=== PATIENT | male | born 1990 | race African-American/Black ===

== ENCOUNTER 2016-05-26 22:00 | Emergency (ER) | payer SELFPAY ==
[~2016-05-26] VITALS: Ht 185.4 cm; Wt 111.0 kg
[~2016-05-26 22:00] MED LIST: IBUP800T23 PO
[2016-05-26 22:02] VITALS: BP 142/79; PULSE 78; RESP 16; TEMP 98.4; O2SAT 99
--- NOTE | 2016-05-26 22:48 | PD ---
Physical Exam Time Seen by Provider: 22:47 Narrative 25 year old male with R ear pain for 3 weeks. Throbbing. Denies drainage. Denies cough/congestion/sore throat/fever. VSS seen at triage desk. Awaiting bed placement. Data Data Last Documented VS Vital Signs Date Time Temp Pulse Resp B/P Pulse Ox O2 Delivery O2 Flow Rate FiO2 05/26/16 22:02 98.4 78 16 142/79 99 MDM Medical Record Reviewed: Yes Supervised Visit with KHURRAM: Yes Trevin Power May 26, 2016 22:48
[2016-05-27] MEDS ORDERED: CORT1SOL RIGHT EAR ×2 (00:59→01:24)
[2016-05-27] MEDS ORDERED: AMOX500T PO (00:59)
[2016-05-27] MEDS ORDERED: AMOXICILLIN (TRIHYDRATE) 500 MG CAP PO ONE (01:00)
--- NOTE | 2016-05-27 01:03 | PD ---
HPI Chief Complaint: ENT Complaint Time Seen by Provider: 01:00 Travel History International Travel<30 days: No Contact w/Intl Traveler<30days: No Traveled to known affect area: No History of Present Illness HPI 25-year-old black male presents to emergency Department with complaints of right ear pain 3 weeks. He has had runny nose, cough and congestion. He's been using lhsx-srq-bjbzcca medications without relief. He also has been irrigating his right ear and peroxide. He's had pain in the outer ear as well as decreased hearing. He states that he had some fever and chills initially but that did resolve. Symptoms are moderate. [facility] Past Medical History Medical History: Denies Significant Hx Immunizations Current: Yes Past Surgical History Surgical History: No Previous Surgery Social History Alcohol Use: Yes Tobacco Use: Yes (1PPD) Substance Use: Yes (PT DENIES THIS VISIT) Allergies-Medications (Allergen,Severity, Reaction): Coded Allergies: No Known Allergies (Unverified , 05/27/16) Reported Meds & Prescriptions Reported Meds & Active Scripts Active No Active Prescriptions or Reported Medications Review of Systems Except as stated in HPI: all other systems reviewed are Neg Physical Exam Narrative GENERAL: Well-developed, well-nourished in no acute distress. Nontoxic appearing. HEAD: Normocephalic, atraumatic. EYES: Pupils equal round and reactive. Extraocular motions intact. No scleral icterus. No injection or drainage. ENT: The right TM is distended with erythema. The left TMs clear without erythema. The external auditory canals have cerumen bilaterally. The right external auditory canals erythematous and has some small amount of exudate. Tender to palpation of the pinna and tragus.. Nose: clear . Posterior pharynx is pink and moist. No tonsillar edema or exudate. Uvula midline. Airway patent. NECK: Trachea midline.Supple, nontender, moves head freely. No central bony tenderness or spasm. CARDIOVASCULAR: Regular rate and rhythm without murmurs, gallops, or rubs. RESPIRATORY: Clear to auscultation. Breath sounds equal bilaterally. No wheezes , rales, or rhonchi. GASTROINTESTINAL: Abdomen soft, non-tender, nondistended. No hepato-splenomegaly , or palpable masses. No guarding. EXTREMITIES: No clubbing, cyanosis, or edema. No joint tenderness, effusion, or edema noted. BACK: Nontender without deformity or crepitance. No flank tenderness. Data Data Last Documented VS Vital Signs Date Time Temp Pulse Resp B/P Pulse Ox O2 Delivery O2 Flow Rate FiO2 05/26/16 22:02 98.4 78 16 142/79 99 Orders Amoxicillin (Trimox) (05/27/16 01:00) MDM Medical Decision Making Medical Screen Exam Complete: Yes Emergency Medical Condition: Yes Medical Record Reviewed: Yes Differential Diagnosis Differential diagnoses: Otitis media, otitis externa, mastoiditis Narrative Course Patient given amoxicillin 1 g by mouth. This is right otitis media, right otitis externa Diagnosis Primary Impression: Right otitis media Qualified Code: H66.91 - Right otitis media, unspecified chronicity, unspecified otitis media type Additional Impression: Right otitis externa Qualified Code: H60.501 - Acute otitis externa of right ear, unspecified type Patient Instructions: General Instructions Additional Instructions: Rest. Increase fluids. Amoxicillin and Cortisporin. Ny-D. Follow-up with a medical doctor in one week. Med/Other Pt SpecificInfo: Prescription(s) given Scripts Vliuxaef-Eiviibroe-SI Otic Drops (Cortisporin HC Otic Drops)3.5-10,000-1 Mg- Units-% Soln4 Drop RIGHT EAR QID #1 BOTTLE Prov:John Andrade MD 05/27/16 Amoxicillin 500 Mg Tab1,000 Mg PO BID #40 TAB Prov:John Andrade MD 05/27/16 Disposition: 01 DISCHARGE HOME Condition: Stable Josh Richmond May 27, 2016 01:03
== END 2016-05-27 01:25 | disposition home or self-care (01) ==
LOC: NEPK 22:00
DX: H66.91 Otitis media, unspecified, right ear (principal); H60.501 Unspecified acute noninfective otitis externa, right ear; F17.200 Nicotine dependence, unspecified, uncomplicated
CPT/HCPCS: 99282

== ENCOUNTER 2016-06-23 05:49 | Emergency (ER) | payer SELFPAY ==
[~2016-06-23] VITALS: Ht 188 cm; Wt 110.0 kg
[~2016-06-23 05:49] MED LIST changes: +AMOX500T PO; +CORT1SOL RIGHT EAR; -IBUP800T23 PO
[2016-06-23 05:51] VITALS: BP 176/92; PULSE 80; RESP 16; TEMP 98.6; O2SAT 100
[2016-06-23] MEDS ORDERED: AUGM875T PO (06:13)
[2016-06-23] MEDS ORDERED: NAPR500 PO (06:13)
[2016-06-23] MEDS ORDERED: CORT1SOL RIGHT EAR (06:13)
--- NOTE | 2016-06-23 06:13 | PD ---
HPI Chief Complaint: ENT Complaint Time Seen by Provider: 06:02 Travel History International Travel<30 days: No Contact w/Intl Traveler<30days: No Traveled to known affect area: No History of Present Illness HPI 25 year-old man presents emergent department complaining of right sided ear pain ongoing for the past week or so. He seen in the emergency department or was found to have inflamed right TM with sinusitis otitis media. He completed antibiotics but didn't seem to really help. He also has pain in his gums on the upper right side. He has a history of some sinus problems. He otherwise has been feeling generally well and healthy History Past Medical History Medical History: Denies Significant Hx Tetanus Vaccination: Unknown Influenza Vaccination: No Past Surgical History Surgical History: No Previous Surgery Social History Alcohol Use: Yes Tobacco Use: Yes (1PPD) Allergies-Medications (Allergen,Severity, Reaction): Coded Allergies: No Known Allergies (Unverified , 06/23/16) Reported Meds & Prescriptions Reported Meds & Active Scripts Active Naprosyn (Naproxen) 500 Mg Tab 500 Mg PO BID PRN Augmentin (Amoxicillin-Clavulanate) 875-125 mg Tab 875 Mg PO BID 7 Days not for use in CrCl <30 ml/min. Cortisporin HC Otic Drops (Hielwipn-Bryvwwgln-KR Otic Drops) 3.5-10,000-1 Mg- Units-% Soln 4 Drop RIGHT EAR QID Review of Systems Except as stated in HPI: all other systems reviewed are Neg Physical Exam Narrative GENERAL: Well-appearing 25-year-old man, no acute distress. SKIN: Focused skin assessment warm/dry. HEAD: Atraumatic. Normocephalic. EYES: Pupils equal and round. No scleral icterus. No injection or drainage. ENT: No nasal bleeding or discharge. Mucous membranes pink and moist. His left TM is really cleared by cerumen. The right ear canal has debris in the lumen, but the eardrum itself looks okay. There is minimal tenderness with traction to the pinna. He does have some cervical adenopathy on the right side. NECK: Trachea midline. No JVD. CARDIOVASCULAR: Regular rate and rhythm. No murmur appreciated. RESPIRATORY: No accessory muscle use. Clear to auscultation. Breath sounds equal bilaterally. GASTROINTESTINAL: Abdomen soft, non-tender, nondistended. Hepatic and splenic margins not palpable. MUSCULOSKELETAL: No obvious deformities. No edema. Data Data Last Documented VS Vital Signs Date Time Temp Pulse Resp B/P Pulse Ox O2 Delivery O2 Flow Rate FiO2 06/23/16 05:51 98.6 80 16 176/[address] [facility] Medical Decision Making Medical Screen Exam Complete: Yes Emergency Medical Condition: Yes Differential Diagnosis Ear pain, dental problems, sinus infection, other Narrative Course Medical decision making 25-year-old male presents emergency Department with right ear pain. He also some tenderness in his gums, and some tender anterior cervical adenopathy. He looks well. I think this is probably mostly from his teeth. His right ear has some debris in the ear canal, but the TM itself is normal. I don't think he has no otitis externa. I did re-prescribe his Cortisporin which he hadn't gotten filled yet. We'll put him on a stronger antibiotic for odontogenic infection, and recommend that he see a dentist. Diagnosis Primary Impression: Ear pain, right Additional Instructions: Take Augmentin as prescribed. Take Naprosyn as needed for pain. Follow-up with a dentist for further evaluation of your teeth on the upper right side. Return to the emergency department for any new or worsening symptoms. Med/Other Pt SpecificInfo: Prescription(s) given Scripts Naproxen (Naprosyn)500 Mg [id number] Mg PO BID PRN (PAIN SCALE 1 TO 10) #20 TAB Prov:Dallas Norris MD 06/23/16 Amoxicillin-Clavulanate (Augmentin)875-125 mg [id number] Mg PO BID 7 Days not for use in CrCl <30 ml/min. Prov:Dallas Norris MD 06/23/16 Rhsqmpnc-Avwzllfdi-OM Otic Drops (Cortisporin HC Otic Drops)3.5-10,000-1 Mg- Units-% Soln4 Drop RIGHT EAR QID #1 BOTTLE Prov:Dallas Norris MD 06/23/16 Disposition: 01 DISCHARGE HOME Condition: Stable Dallas Norris MD June 23, 2016 06:13
== END 2016-06-23 06:25 | disposition home or self-care (01) ==
LOC: NEPE 05:49
DX: H92.01 Otalgia, right ear (principal); F17.210 Nicotine dependence, cigarettes, uncomplicated
CPT/HCPCS: 99282

== ENCOUNTER 2016-11-03 19:33 | Emergency (ER) | payer SELFPAY ==
[~2016-11-03] VITALS: Ht 185.4 cm; Wt 113.5 kg
[~2016-11-03 19:33] MED LIST changes: -AMOX500T PO; +AUGM875T PO; +NAPR500 PO
[2016-11-03 19:34] VITALS: BP 133/79; PULSE 93; RESP 16; TEMP 98.7; O2SAT 99
--- NOTE | 2016-11-03 20:04 | PD ---
HPI Chief Complaint: Injury Time Seen by Provider: 20:00 Travel History International Travel<30 days: No Contact w/Intl Traveler<30days: No Traveled to known affect area: No History of Present Illness HPI 25-year-old black male presents to emergency department for evaluation of right ankle pain after an injury 2 days ago. He states that he had dropped a viral on his right foot and ankle at work the day before. He states that he had some mild pain initially and was able to do his activities. He states that when he awoke today he has had significant discomfort has had decreased ability to ambulate. He denies any numbness or tingling. No other injury. Pain is moderate Worse with walking. Some relief with elevation. History Past Medical Histgory Medical History: Denies Significant Hx Tetanus Vaccination: < 5 Years Past Surgical History Surgical History: No Previous Surgery Social History Alcohol Use: Yes Tobacco Use: Yes (1PPD) Allergies-Medications (Allergen,Severity, Reaction): Coded Allergies: No Known Allergies (Unverified , 11/03/16) Reported Meds & Prescriptions Reported Meds & Active Scripts Active Naprosyn (Naproxen) 500 Mg Tab 500 Mg PO BID PRN Augmentin (Amoxicillin-Clavulanate) 875-125 mg Tab 875 Mg PO BID 7 Days not for use in CrCl <30 ml/min. Cortisporin HC Otic Drops (Lztyyjic-Ybjvonfeg-AY Otic Drops) 3.5-10,000-1 Mg- Units-% Soln 4 Drop RIGHT EAR QID Review of Systems Except as stated in HPI: all other systems reviewed are Neg Physical Exam Narrative GENERAL: This is a well-nourished, well-developed patient, in no apparent distress. SKIN: No rashes, ecchymoses or lesions. Warm and dry. HEAD: Atraumatic. Normocephalic. EYES: PERRL, EOMI, no discharge or injection. No scleral icterus. EARS: Clear NOSE: Nasal turbinates appear normal. THROAT: Mucosa pink and moist. Airway patent. NECK: Trachea midline. supple, moves head freely. LUNGS: Clear to auscultation. CV: Regular in rhythm. ABDOMEN: Soft nontender. EXT: No clubbing cyanosis or edema. Examination of the right lower extremity reveals pain to the anterior talar fibular ligament region. There is no pain in the medial or lateral malleolus. No pain in the heel or Achilles. No pain in the forefoot or toes. Patient is ambulating with a mildly antalgic gait. Data Data Last Documented VS Vital Signs Date Time Temp Pulse Resp B/P (MAP) Pulse Ox O2 Delivery O2 Flow Rate FiO2 11/03/16 19:34 98.7 93 16 133/79 (97) 99 Room Air MDM Medical Screen Exam Complete: Yes Emergency Medical Condition: No Differential Diagnosis MDM: High Differential diagnoses: Fracture, sprain, strain, dislocation, contusion, neurovascular injury Narrative Course A medical screening exam was performed: At the time of evaluation the presenting medical condition was determined not to be of an emergent nature. The patient was given the option of receiving additional care, but declined. Patient was given options for additional community resources from which to obtain care. The Patient Has Been advised to seek medical attention for their presenting complaint. The patient has been advised to return to the ER at any time if an emergent condition develops. Primary Impression: Encounter for medical screening examination Condition: Josh Sol Nov 03, 2016 20:04
== END 2016-11-03 20:13 | disposition left against medical advice (07) ==
LOC: NEPK 19:33
DX: M25.571 Pain in right ankle and joints of right foot (principal); F17.200 Nicotine dependence, unspecified, uncomplicated
CPT/HCPCS: 99281

== ENCOUNTER 2017-09-15 18:40 | Inpatient (IN) ==
[2017-09-15] MEDS ORDERED: Piperacil/Tazo 4.5 GM Premix 4.5 GM/100 ML BAG IV.SIG STA (20:40)
[2017-09-15] MEDS ORDERED: Vancomycin Inj 1,000 MG in Sodium Chlor 0.9% Inj 250 ML IV.SIG STA (20:40)
[2017-09-15] MEDS ORDERED: Morphine Sulfate Inj 8 MG/ML Vial IV.PUSH ONE (20:40)
--- NOTE | 2017-09-15 21:06 | ED ---
HPI General Chief complaint: Skin/Abscess/Foreign Body Stated complaint: Abcess to buttocks Time Seen by Provider: 09/15/17 20:34 Source: patient and family Mode of arrival: ambulatory Limitations: no limitations History of Present Illness HPI narrative: Patient is a 26-year-old male presenting to the emergency department for evaluation of an abscess to his left buttock. Patient states it started 7 days ago. He states that he was here 2 days ago and was prescribed antibiotics. He reports compliance with this medication. He states the pain has gotten worse despite antibiotic. Pain is a 10 out of 10, aching and throbbing. Patient states he cannot sit. He reports fevers which have been ongoing for the last 2 days. Patient last took Tylenol at noon today. Symptom onset was gradual, symptoms are significant to severe nature. No alleviating factors. Patient reports a history of the same. Patient has been taking Bactrim. MD complaint: abscess/boil Onset (ago): week(s) (1) Location: buttocks Severity: severe Severity scale (1-10): 10 Quality: aching and constant Pain Consistency: constant Relieving factors: none Exacerbating factors: movement Context: none Associated symptoms: fever, chills and malaise Treatments prior to arrival: antibiotic Related Data Previous Rx's Medication Instructions Recorded sulfamethoxazole-trimethoprim 1 tab PO Q12H 7 Days #14 tab 09/13/17 [Bactrim DS] Allergies Allergy/AdvReac Type Severity Reaction Status Date / Time No Known Allergies Allergy Verified 09/15/17 19:17 Review of Systems Except as stated in HPI: all other systems reviewed are negative [facility] Medical History Medical History Patient denies medical problems (Acute) Surgical History Surgical History No history of previous surgery (Acute) Social History Social History Substance History: Active Abuse Second Hand Smoke Exposure: No Smoking Status: Current every day smoker Tobacco Type: Cigarettes How Often Do You Have a Drink Containing Alcohol: 2 to 3 times a week Recent Travel in [facility] within the Last 8 Weeks: No Recent Out of Country Travel within the Last 8 Weeks: No Substance Abuse Detail Marijuana: Substance Use Status: Active Route Used Substance Abuse: Inhalation Substance Frequency: DAILY OUNCE OR MORE A DAY Reason for Use: Feels Good Immunization History Tetanus Immunization: >5 Years Hx Influenza Vaccine This Season: No Exam Narrative Exam Narrative: GENERAL: Well-developed, well-nourished, alert -[place] male. Appears uncomfortable, no acute distress. SKIN: Focused skin assessment warm/dry. 7 x 12 cm area of firmness to the left buttock adjacent to the gluteal cleft, there is a second area of firmness to the right buttock approximately 3 x 4 cm. No fluctuance noted. Extremely tender to palpation. HEAD: Atraumatic. Normocephalic. EYES: Pupils equal and round. No scleral icterus. No injection or drainage. ENT: No nasal bleeding or discharge. Mucous membranes pink and moist. NECK: Trachea midline. No JVD. CARDIOVASCULAR: Tachycardic. No murmur appreciated. RESPIRATORY: No accessory muscle use. Clear to auscultation. Breath sounds equal bilaterally. GASTROINTESTINAL: Abdomen soft, non-tender, nondistended. Hepatic and splenic margins not palpable. MUSCULOSKELETAL: No obvious deformities. No clubbing. No cyanosis. No edema. NEUROLOGICAL: Awake and alert. No obvious cranial nerve deficits. Motor grossly within normal limits. Normal speech. PSYCHIATRIC: Appropriate mood and affect; insight and judgment normal. Procedures Abscess I/D Site: jeremiah-rectal Side (if applicable): left Anesthetic used: with epi Technique: incised with #11 blade Amount of fluid expressed (mL): 150 Irrigation: Yes Packing used?: iodoform Course Initial Documented Vital Signs Temperature 100.5 F H 09/15/17 19:17 Pulse Rate 108 H 09/15/17 19:17 Respiratory Rate 18 09/15/17 19:17 Blood Pressure 127/86 09/15/17 19:17 Pulse Oximetry 99 09/15/17 19:17 Last Documented Vital Signs Temperature 100.5 F H 09/15/17 19:17 Pulse Rate 89 09/15/17 21:00 Respiratory Rate 16 09/15/17 20:59 Blood Pressure 128/58 L 09/15/17 20:59 Pulse Oximetry 98 09/15/17 20:59 Medical Decision Making KHURRAM Attestation KHURRAM supervised visit: Yes Attestation: I, Dr. Booth, have reviewed the advance practice practitioner's documentation and am in agreement, met with the patient face to face, made the diagnosis, and the medical decision making was done by me. *My assessment and Findings: Patient 26-year-old male presents emergency department for evaluation of gluteal abscess, spread significantly since his last hospital visit, he was seen here a few days ago placed on Bactrim, his abscesses grown significantly and now he is having generalized symptoms, his vital signs have shown increased heart rate and fever today and he does have a white count with neutrophilia. This is consistent with Sirs and therefore sepsis. He was started on broad-spectrum antibiotics, Ms. Tristan added Flagyl for possibility of E. coli infection as well however more likely this is staff or possibly even Pseudomonas. Will be admitted to the hospital. MDM Narrative Medical decision making narrative: Patient is a 26-year-old male presenting to the emergency department for reevaluation of an abscess to his left buttock which has worsened since his last presentation to the emergency department. Patient is mildly tachycardic and febrile on arrival. Labs and imaging ordered and pending. Please see procedure report for I&D. Patient's white count is elevated at 14.[address] scan shows abscess and cellulitis in the left gluteal region. Wound culture obtained and is pending. Patient reports improvement in his pain. Patient will be admitted for IV antibiotic therapy as he has failed outpatient therapy. Patient is agreeable to plan. Differential Diagnosis Differential Diagnosis: Abscess versus cellulitis versus perirectal abscess versus pilonidal abscess versus other Medical Records Medical records reviewed: Yes I reviewed the patient's medical records. Lab Data Lab results reviewed: Yes I reviewed the patient's lab results. Result diagrams: 09/15/17 21:00 09/15/17 21:00 Lab Results 09/15/17 09/15/17 09/15/17 Range/Units 21:00 21:00 21:00 WBC 14.2 H (4.0-11.0) th/mm3 RBC 4.79 (4.50-5.90) mil/mm3 Hgb 13.6 (13.0-17.0) gm/dL Hct 41.3 (39.0-51.0) % MCV 86.3 (80.0-100.0) fL MCH 28.3 (27.0-34.0) pg MCHC 32.8 (32.0-36.0) % RDW 13.5 (11.6-17.2) % Plt Count 353 (150-450) th/mm3 MPV 7.1 (7.0-11.0) fL Neut % (Auto) 81.9 H (16.0-70.0) % Lymph % (Auto) 10.6 (9.0-44.0) % [place] % (Auto) 6.9 (0.0-8.0) % Eos % (Auto) 0.2 (0.0-4.0) % Baso % (Auto) 0.4 (0.0-2.0) % Neut # (Auto) 11.6 H (1.8-7.7) th/mm3 Lymph # (Auto) 1.5 (1.0-4.8) th/mm3 [place] # (Auto) 1.0 H (0.0-0.9) th/mm3 Eos # (Auto) 0.0 (0.0-0.4) th/mm3 Baso # (Auto) 0.1 (0.0-0.2) th/mm3 WBC Differential . Differential Comment Auto diff final Sodium 134 L (136-145) meq/L Potassium 3.8 (3.5-5.1) meq/L Chloride 101 (98-107) meq/L Carbon Dioxide 26.1 (21.0-32.0) meq/L Anion Gap 7 (5-15) meq/L BUN 10 (7-18) mg/dL Creatinine 1.09 (0.60-1.30) mg/dL Estimated GFR Greater than 89 (>89) mL/min Random Glucose 103 (74-106) mg/dL Lactic Acid 1.6 (0.4-2.0) mmol/L Calcium 8.8 (8.5-10.1) mg/dL Total Bilirubin 0.6 (0.2-1.0) mg/dL AST 15 (15-37) U/L ALT 25 (12-78) U/L Alkaline Phosphatase 90 (45-117) U/L Total Protein 8.3 H (6.4-8.2) g/dL Albumin 3.4 (3.4-5.0) g/dL Imaging Data Radiologist's impression: Abdomen/Pelvis CT 09/15/17 20:40 CONCLUSION: 1. Abscess in the gluteal region between the gluteus ivon musculature posterior to the coccyx measuring up to 7.6 x 4 cm. No extension into the ischiorectal fossae identified. Cellulitis extends to the anal verge. 2. No acute findings within the abdomen and pelvis. Discharge Plan Discharge Disposition Patient Disposition: 30 Still Patient Discharge Condition Condition: Good Discharge Details Diagnosis: Abscess and cellulitis of gluteal region, Sepsis Physicians Team ED Provider: Barry Booth ED Midlevel Provider: Brandi Padgett Primary Care Provider: Primary Care Zayra Andrea Rxs /Orders / Referrals /Forms Prescriptions: No Action sulfamethoxazole-trimethoprim [Bactrim DS] 800-160 mg tablet 1 tab PO Q12H 7 Days Qty: 14 RF: 0 Status ED Status: Admitted Patient
[2017-09-15 21:13] LABS: Baso # (Auto) 0.1 th/mm3 (0.0-0.2); Baso % (Auto) 0.4 % (0.0-2.0); Eos % (Auto) 0.2 % (0.0-4.0); Hematocrit 41.3 % (39.0-51.0); Hemoglobin 13.6 gm/dL (13.0-17.0); Lymph # (Auto) 1.5 th/mm3 (1.0-4.8); Lymph % (Auto) 10.6 % (9.0-44.0); Mean Corpuscular HGB Conc 32.8 % (32.0-36.0); Mean Corpuscular Hemoglobin 28.3 pg (27.0-34.0); Mean Corpuscular Volume 86.3 fL (80.0-100.0); Mean Platelet Volume 7.1 fL (7.0-11.0); Mono % (Auto) 6.9 % (0.0-8.0); Neut # (Auto) 11.6 th/mm3 (1.8-7.7); Neut % (Auto) 81.9 % (16.0-70.0); Platelet Count 353 th/mm3 (150-450); Red Blood Count 4.79 mil/mm3 (4.50-5.90); Red Cell Distribution Width 13.5 % (11.6-17.2); White Blood Count 14.2 th/mm3 (4.0-11.0)
[2017-09-15 21:33] LABS: Albumin 3.4 g/dL (3.4-5.0); Anion Gap 7 meq/L (5-15); Aspartate Aminotransferase 15 U/L (15-37); Blood Urea Nitrogen 10 mg/dL (7-18); Calcium 8.8 mg/dL (8.5-10.1); Carbon Dioxide 26.1 meq/L (21.0-32.0); Chloride 101 meq/L (98-107); Glomerular Filtration Rate Greater Than 89 mL/min (>89); Glucose,Random 103 mg/dL (74-106); Potassium 3.8 meq/L (3.5-5.1); Sodium 134 meq/L (136-145)
[2017-09-15 21:37] LABS: Alanine Aminotransferase 25 U/L (12-78); Alkaline Phosphatase 90 U/L (45-117); Total Protein 8.3 g/dL (6.4-8.2)
--- NOTE | 2017-09-15 21:38 | CT ---
EXAM DATE: 09/15/2017 9:13 PM EDT AGE/SEX: 26 years / Male INDICATIONS: Abscess on buttock. CLINICAL DATA: This is the patient's initial encounter. Patient reports that signs and symptoms have been present for 1 day and indicates a pain score of 5/10. MEDICAL/SURGICAL HISTORY: None. None. ORAL CONTRAST: No oral contrast ingested. RADIATION DOSE: 20.52 CTDI (mGy) COMPARISON: No prior exams available for comparison. TECHNIQUE: Multiple contiguous axial images were obtained through the abdomen and pelvis following b olus infusion of 97 ml Omnipaque 350 (iohexol) nonionic water-soluble contrast as a single exam dos e. No oral contrast ingested. Using automated exposure control and adjustment of the mA and/or kV ac cording to patient size, radiation dose was kept as low as reasonably achievable to obtain optimal di agnostic quality images. DICOM format image data is available electronically for review and comparis on. FINDINGS: Lung bases are clear. No acute findings in the liver, spleen, adrenals, kidneys or pancreas. No calci fied gallstones or biliary ductal dilatation. In the posterior pelvic region predominantly along the medial left gluteal region posterior to the co ccyx there is a 7.6 x 4 cm abscess which extends slightly across midline into the medial right glutea l region. There is some surrounding cellulitis. There is no free fluid. No bowel obstruction. No adenopathy. CONCLUSION: 1. Abscess in the gluteal region between the gluteus ivon musculature posterior to the coccyx dillan suring up to 7.6 x 4 cm. No extension into the ischiorectal fossae identified. Cellulitis extends to the anal verge. 2. No acute findings within the abdomen and pelvis. Electronically signed by: Josh Camarena MD 09/15/2017 9:37 PM EDT
[2017-09-15] MEDS ORDERED: Lidocaine 1%/Epinephrine 1:100,000 Inj 20 ML Vial INFILTRATN ONE (21:43)
[2017-09-15] MEDS ORDERED: Vancomycin Consult Pharmacy 1 EACH OTHER SCH (22:33)
[2017-09-15] MEDS ORDERED: Temazepam 15 MG Capsule PO PRN (22:34)
[2017-09-15] MEDS ORDERED: Bisacodyl 10 MG Supp RECTAL PRN (22:34)
[2017-09-15] MEDS ORDERED: Naloxone Inj 0.4 MG/ML Vial IV.PUSH PRN (22:36)
--- NOTE | 2017-09-15 23:49 | P.HPIM ---
History of Present Illness Primary Care Physician: No Primary Care Physician History of Present Illness: 36-year-old male who presents with one-week history of aggressively worsening constant sharp nonradiating over the right buttock. Patient visited the ER on , was prescribed a course of Bactrim which she has been taking. Unfortunately, the pain has continued to worsen and swelling has worsened as well. Patient denies any chest pain, shortness of breath, nausea, vomiting, fevers, chills. Patient had incision and drainage performed in the ER, now reports pain has much improved. Inpatient Certification: I certify that the inpatient services were ordered in accordance with Medicare regulations governing the order. This includes certification that hospital inpatient services are reasonable and necessary and in the case of services not specified as inpatient-only under 42 CFR 419.22(n), that they are appropriately provided as inpatient services in accordance to with the 2-midnight benchmark under 43 CFR 412.3(e) Estimated Total Length of Stay (Days): 3 Plans for Post Hospital Care: Home Review of Systems All other systems reviewed negative except as stated in [facility] - History History Provided By: Patient - Medical History Medical History: Medical History (Last Reviewed 09/15/17 @ 21:04 by FRANCINE Arambula) Patient denies medical problems - Surgical History Surgical History: Surgical History (Last Reviewed 09/15/17 @ 21:04 by FRANCINE Arambula) No history of previous surgery - Family History Family History: Family History (Last Updated 09/15/17 @ 23:47 by Michoacano Byrd MD) Mother Hypertension Father Diabetes - Tobacco History Second Hand Smoke Exposure: No Tobacco Use In Past 30 Days: Yes Smoking Status: Current every day smoker Tobacco Type: Cigarettes - Alcohol History How Often Do You Have a Drink Containing Alcohol: 2 to 3 times a week - Substance Use History Substance History: Active Abuse - Substance Use Type Marijuana Status: Active Route Used: Inhalation Frequency: DAILY OUNCE OR MORE A DAY Reason for Use: Feels Good - Travel History Recent Travel in the [place] Within the Last 8 Weeks: No Recent Travel Out of the Country Within the Last 8 Weeks: No - Immunization History Tetanus Immunization: >5 Years Hx Influenza Vaccine This Season: No Medications and Allergies Active Medications: Active Medications Hydrocodone Bitart/Acetaminophen (Orwell 10/325) 1 tab PO Q4H PRN PRN Reason: PAIN SCALE 6 TO 10 Hydrocodone Bitart/Acetaminophen (Orwell 5/325) 1 tab PO Q4H PRN PRN Reason: PAIN SCALE 3 TO 5 Al Hydroxide/Mg Hydroxide (Milk Of Magnesia Liq) 30 ml PO Q12H PRN PRN Reason: Mild Constipation Bisacodyl (Dulcolax Supp) 10 mg RECTAL DAILY PRN PRN Reason: SEVERE CONSITIPATION Piperacillin/Tazobactam/Dextrose (Zosyn 4.5 Gm Premix) 4.5 gm in 100 mls @ 200 mls/hr IV.SIG Q6H [facility] Pharmacy Profile Note (Vancomycin Consult Pharmacy) 0 mls @ 0 mls/hr OTHER UNSCH CLAUDY Sodium Chloride (Ns Inj) 1,000 mls @ 100 mls/hr IV.CONT .Q10H [facility] Vancomycin HCl 1,750 mg/ (Sodium Chloride) 517.5 mls @ 258.75 mls/hr IV.SIG ONCE ONE Stop: 09/16/17 03:59 Lactulose (Lactulose Liq) 30 ml PO DAILY PRN PRN Reason: SEVERE CONSITIPATION Naloxone HCl (Narcan Inj) 0.4 mg IV.PUSH UNSCH PRN PRN Reason: SEE LABEL COMMENTS Sennosides (Senokot) 17.2 mg PO Q12H PRN PRN Reason: Moderate Constipation Temazepam (Restoril) 15 mg PO HS PRN PRN Reason: INSOMNIA Allergies Allergy/AdvReac Type Severity Reaction Status Date / Time No Known Allergies Allergy Verified 09/15/17 19:17 Exam Vital signs: Vital Signs 09/15/17 19:17 09/15/17 20:59 09/15/17 21:00 Temperature 100.5 F H Pulse Rate 108 H 93 H 89 Respiratory Rate 18 16 Blood Pressure 127/86 128/58 L Pulse Oximetry 99 98 09/15/17 21:20 09/15/17 23:16 Temperature 99.5 F Pulse Rate 82 Respiratory Rate 15 Blood Pressure 122/58 L Pulse Oximetry 100 96 Intake & Output 09/15/17 09/15/17 09/16/17 06:59 18:59 06:59 Intake Total 450 / 450 Balance 450 / 450 Weight 108.862 kg Intake: IV 450 / 450 Ofirmev Inj 1,000 mg In 100 ml 100 / 100 @ 400 mls/hr IV.SIG ONCE ONE Rx #:[id number] Zosyn 4.5 GM Premix 4.5 gm In 100 / 100 100 ml @ 200 mls/hr IV.SIG STAT STA Rx#:[id number] Vancomycin Inj 1,000 MG In NS 250 / 250 Inj 250 ML @ 250 mls/hr IV.SIG STAT STA Rx#:[id number] Narrative: GENERAL: Patient lying in bed. Appears comfortable. SKIN: Warm and dry. HEAD: Atraumatic. Normocephalic. EYES: Pupils equal and round. No scleral icterus. No injection or drainage. ENT: No nasal bleeding or discharge. Mucous membranes pink and moist. NECK: Trachea midline. No JVD. CARDIOVASCULAR: Regular rate and rhythm. RESPIRATORY: No accessory muscle use. Clear to auscultation. Breath sounds equal bilaterally. GASTROINTESTINAL: Abdomen soft, non-tender, nondistended. Hepatic and splenic margins not palpable. MUSCULOSKELETAL: Extremities without clubbing, cyanosis, or edema. No obvious deformities. Patient with left superior gluteal abscess which has been incised , drained, packed. Draining serosanguineous fluid at this time. NEUROLOGICAL: Awake and alert. No obvious cranial nerve deficits. Motor grossly within normal limits. Five out of 5 muscle strength in the arms and legs. Normal speech. PSYCHIATRIC: Appropriate mood and affect; insight and judgment normal. Results - Labs CBC & Chem 7: 09/15/17 21:00 09/15/17 21:00 Labs: Short CBC 09/15/17 Range/Units 21:00 WBC 14.2 H (4.0-11.0) th/mm3 Hgb 13.6 (13.0-17.0) gm/dL Hct 41.3 (39.0-51.0) % Plt Count 353 (150-450) th/mm3 BMP 09/15/17 21:00 Sodium 134 L Potassium 3.8 Chloride 101 Carbon Dioxide 26.1 BUN 10 Creatinine 1.09 Calcium 8.8 Liver Function 09/15/17 Range/Units 21:00 Total Bilirubin 0.6 (0.2-1.0) mg/dL AST 15 (15-37) U/L ALT 25 (12-78) U/L Alkaline Phosphatase 90 (45-117) U/L Albumin 3.4 (3.4-5.0) g/dL - Imaging Impressions Abdomen/Pelvis CT 09/15/17 20:40 CONCLUSION: 1. Abscess in the gluteal region between the gluteus ivon musculature posterior to the coccyx measuring up to 7.6 x 4 cm. No extension into the ischiorectal fossae identified. Cellulitis extends to the anal verge. 2. No acute findings within the abdomen and pelvis. Caprini VTE Risk Assessment Caprini VTE Risk Assessment: No/Low Risk (score <= 1) Caprini Risk Assessment Model: Point Value = 1 Point Value = 2 Point Value = 3 Point Value = 5 Age 41-60 Minor surgery BMI > 25 kg/m2 Swollen legs Varicose veins or History of unexplained or recurrent spontaneous Oral contraceptives or hormone replacement Sepsis (< 1 month) Serious lung disease, including pneumonia (< 1 month) Abnormal pulmonary function Acute myocardial infarction Congestive heart failure (< 1 month) History of inflammatory bowel disease Medical patient at bed rest Age 61-74 Arthroscopic surgery Major open surgery (> 45 min) Laparoscopic surgery (> 45 min) Malignancy Confined to bed (> 72 hours) Immobilizing plaster cast Central venous access Age >= 75 History of VTE Family history of VTE Factor V Leiden Prothrombin [id number] Lupus anticoagulant Anticardiolipin antibodies Elevated serum homocysteine Heparin-induced thrombocytopenia Other congenital or acquired thrombophilia Stroke (< 1 month) Elective arthroplasty Hip, pelvis, or leg fracture Acute spinal cord injury (< 1 month) Prophylaxis Regimen: Total Risk Factor Score Risk Level Prophylaxis Regimen 0-1 Low Early ambulation 2 Moderate Order ONE of the following: *Sequential Compression Device (SCD) *Heparin 5000 units SQ BID 3-4 Higher Order ONE of the following medications: *Heparin 5000 units SQ TID *Enoxaparin/Lovenox 40 mg SQ daily (WT < 150 kg, CrCl > 30 mL/min) *Enoxaparin/Lovenox 30 mg SQ daily (WT < 150 kg, CrCl > 10-29 mL/min) *Enoxaparin/Lovenox 30 mg SQ BID (WT < 150 kg, CrCl > 30 mL/min) AND/OR *Sequential Compression Device (SCD) 5 or more Highest Order ONE of the following medications: *Heparin 5000 units SQ TID (Preferred with Epidurals) *Enoxaparin/Lovenox 40 mg SQ daily (WT < 150 kg, CrCl > 30 mL/min) *Enoxaparin/Lovenox 30 mg SQ daily (WT < 150 kg, CrCl > 10-29 mL/min) *Enoxaparin/Lovenox 30 mg SQ BID (WT < 150 kg, CrCl > 30 mL/min) AND *Sequential Compression Device (SCD) Assessment and Plan - Plan //Sepsis //Left gluteal abscess //Failure of outpatient treatment with Bactrim = Fever 100.5. Heart rate 108 on admission, leukocytosis 14.2. = CT pelvis confirms some 0.6 x 4 cm abscess without fasciitis . =abscess has been incised and drained. = Lactate not elevated. = Continue broad-spectrum antibiotics to cover MRSA, anaerobes. Pending cultures //Tobacco abuse. Cessation counseling provided. Discussed Condition With: Patient, nurse, ED physician, at bedside
[2017-09-16] MEDS: Sod Chloride 0.9% Inj 1,000 ML IV.CONT SCH ×2 (01:26→15:47)
[2017-09-16] MEDS ORDERED: Vancomycin Inj 1,750 MG in Sodium Chlor 0.9% Inj 500 ML IV.SIG ONE (02:00)
[2017-09-16] MEDS: Piperacil/Tazo 4.5 GM Premix 4.5 GM/100 ML BAG IV.SIG SCH ×4 (05:13→20:58)
[2017-09-16] MEDS ORDERED: Vancomycin Inj 1 GM/200 ML PIGGYBACK IV.SIG SCH (09:00)
--- NOTE | 2017-09-16 10:54 | P.PNIM ---
Subjective Interval history: 36-year-old male who presents with one-week history of aggressively worsening constant sharp nonradiating over the right buttock. Patient visited the ER on , was prescribed a course of Bactrim which she has been taking. Unfortunately, the pain has continued to worsen and swelling has worsened as well. Patient denies any chest pain, shortness of breath, nausea, vomiting, fevers, chills. Patient had incision and drainage performed in the ER, now reports pain has much improved. 8-2 HAD BUTTOCKS ABSCESS I&D IN ER YESTERDAY ADMITTED AREA IS PACKED FOLLOW UP ON LEFT BUTTOCKS ABSCESS DW RN AND PT PATIENT STATES AREA IS PAINFUL STILL PACKED WILL CONSULT WOUND CARE FOR EVALUATIONS Physical Exam Vital signs: Vital Signs 09/15/17 19:17 09/15/17 20:59 09/15/17 21:00 Temperature 100.5 F H Pulse Rate 108 H 93 H 89 Respiratory Rate 18 16 Blood Pressure 127/86 128/58 L Pulse Oximetry 99 98 09/15/17 21:20 09/15/17 23:16 09/16/17 04:00 Temperature 99.5 F 99.1 F Pulse Rate 82 85 Respiratory Rate 15 15 Blood Pressure 122/58 L 115/68 Pulse Oximetry 100 96 96 09/16/17 08:00 Temperature 99.7 F H Pulse Rate 86 Respiratory Rate 17 Blood Pressure 110/66 Pulse Oximetry 97 Intake & Output 09/15/17 09/16/17 09/16/17 18:59 06:59 18:59 Intake Total 450 / 450 Output Total 300 / 300 Balance 150 / 150 Weight 112.62 kg Intake: IV 450 / 450 Ofirmev Inj 1,000 mg In 100 ml 100 / 100 @ 400 mls/hr IV.SIG ONCE ONE Rx #:[id number] Zosyn 4.5 GM Premix 4.5 gm In 100 / 100 100 ml @ 200 mls/hr IV.SIG STAT STA Rx#:[id number] Vancomycin Inj 1,000 MG In NS 250 / 250 Inj 250 ML @ 250 mls/hr IV.SIG STAT STA Rx#:[id number] Output: Urine 300 / 300 Other: Date of Last Bowel Movement 09/15/17 Weight On Admission 112.62 kg Narrative: GENERAL: Patient lying in bed. Appears comfortable. SKIN: Warm and dry. Other than the area around the left buttocks abscess HEAD: Atraumatic. Normocephalic. EYES: Pupils equal and round. No scleral icterus. No injection or drainage. ENT: No nasal bleeding or discharge. Mucous membranes pink and moist. NECK: Trachea midline. No JVD. CARDIOVASCULAR: Regular rate and rhythm. RESPIRATORY: No accessory muscle use. Clear to auscultation. Breath sounds equal bilaterally. GASTROINTESTINAL: Abdomen soft, non-tender, nondistended. Hepatic and splenic margins not palpable. MUSCULOSKELETAL: Extremities without clubbing, cyanosis, or edema. No obvious deformities. Patient with left superior gluteal abscess which has been incised , drained, packed. Draining serosanguineous fluid at this time. NEUROLOGICAL: Awake and alert. No obvious cranial nerve deficits. Motor grossly within normal limits. Five out of 5 muscle strength in the arms and legs. Normal speech. PSYCHIATRIC: Appropriate mood and affect; insight and judgment normal. Results - Labs CBC & Chem 7: 09/15/17 21:00 09/15/17 21:00 Laboratory Results - last 24 hr 09/15/17 09/15/17 09/15/17 21:00 21:00 21:00 WBC 14.2 H RBC 4.79 Hgb 13.6 Hct 41.3 MCV 86.3 MCH 28.3 MCHC 32.8 RDW 13.5 Plt Count 353 MPV 7.1 Neut % (Auto) 81.9 H Lymph % (Auto) 10.6 Gosper % (Auto) 6.9 Eos % (Auto) 0.2 Baso % (Auto) 0.4 Neut # (Auto) 11.6 H Lymph # (Auto) 1.5 Gosper # (Auto) 1.0 H Eos # (Auto) 0.0 Baso # (Auto) 0.1 WBC Differential . Differential Comment Auto diff final Sodium 134 L Potassium 3.8 Chloride 101 Carbon Dioxide 26.1 Anion Gap 7 BUN 10 Creatinine 1.09 Estimated GFR Greater than 89 Random Glucose 103 Lactic Acid 1.6 Calcium 8.8 Total Bilirubin 0.6 AST 15 ALT 25 Alkaline Phosphatase 90 Total Protein 8.3 H Albumin 3.4 Microbiology 09/15/17 22:30 Abscess - Buttock Gram Stain - Final - Imaging Impressions Abdomen/Pelvis CT 09/15/17 20:40 CONCLUSION: 1. Abscess in the gluteal region between the gluteus ivon musculature posterior to the coccyx measuring up to 7.6 x 4 cm. No extension into the ischiorectal fossae identified. Cellulitis extends to the anal verge. 2. No acute findings within the abdomen and pelvis. - Procedures Left buttocks abscess incision and drainage by the emergency room on September 15 Assessment and Plan - Plan Sepsis Left gluteal abscess Failure of outpatient treatment with Bactrim Fever 100.5. Heart rate 108 on admission, leukocytosis 14.2. = CT pelvis confirms some 0.6 x 4 cm abscess without fasciitis . =abscess has been incised and drained. = Lactate not elevated. = Continue broad-spectrum antibiotics to cover MRSA, anaerobes. Pending cultures On Vanco and Zosyn Pain control Tobacco abuse. Cessation counseling provided. A.m. labs Consult wound care Consult general surgery Code Status: Full code Discussed Condition With: RN and patient and family Discharge Planning: Pending improvement of the abscess and identification of the species in the abscess
[2017-09-16] MEDS ORDERED: Ketorolac Inj 30 MG/ML (IVP) Vial IV.PUSH ONE (12:00)
[2017-09-16] MEDS ORDERED: Glycopyrrolate Inj 1 MG/5 ML Syringe IV.PUSH ONE (12:00)
[2017-09-16] MEDS ORDERED: Succinylcholine Inj 100 MG/5 ML Syringe IV.PUSH ONE (12:00)
[2017-09-16] MEDS ORDERED: Lidocaine PF 1% Inj 5 ML Syringe INFILTRATN ONE (12:00)
--- NOTE | 2017-09-16 12:48 | P.PNWCN ---
Wound Care Nurse Consult Description: Consult for wound management of left buttock per Dr Byrd Communicated with: RN Patient Patient significant other at bedside Recommendation: Agree with consult placed by Dr Galaviz moments prior to seeing patient for general surgery to further I&D. Additional information: Patient seen on for left buttock post I&D with packing. Incision - Incision Left Buttocks Incision Assessment: Ongoing Incision Type: Incision Incision Description: Open Surrounding Tissue Appearance: Bright Red, Indurated Surrounding Tissue Temperature: Hot Drainage Description: Sanguinous/purulent Drainage Amount: Moderate (~75ml poured out of incision site when iodoform packing was removed.) Drainage Odor: Slight Odor Incision Dressing Status: Changed Incision Cleaning Solution: Saline Primary Dressing: Maxorb II Cover Dressing: Other (Foam adhesive (Optifoam)) Incision Dressing Change Date: 09/16/17 - Additional Information Iodoform packing removed from 2cm x 0.3cm opening in left buttock. ~75ml ( moderate amount) of thick sanguinous/yellow exudate and mild odor noted. Periwound is noted with erythematous indurated areas extending outwards laterally of 8cm from incision line. Right inner buttock is noted with erythematous induration as well ~5cm from incision. Mild pressure was applied to left buttock with more exudate noted. Patient could not tolerate packing of Iodoform at this time, therefore wound was covered with an alginate dressing and secured with a foam adhesive.
[2017-09-16 13:11] LABS: Baso % (Auto) 0.3 % (0.0-2.0); Eos # (Auto) 0.1 th/mm3 (0.0-0.4); Eos % (Auto) 0.7 % (0.0-4.0); Hematocrit 39.2 % (39.0-51.0); Hemoglobin 13.1 gm/dL (13.0-17.0); Lymph # (Auto) 1.6 th/mm3 (1.0-4.8); Lymph % (Auto) 10.7 % (9.0-44.0); Mean Corpuscular HGB Conc 33.4 % (32.0-36.0); Mean Corpuscular Volume 86.9 fL (80.0-100.0); Mean Platelet Volume 7.3 fL (7.0-11.0); Mono # (Auto) 1.2 th/mm3 (0.0-0.9); Mono % (Auto) 8.4 % (0.0-8.0); Neut # (Auto) 11.7 th/mm3 (1.8-7.7); Neut % (Auto) 79.9 % (16.0-70.0); Platelet Count 360 th/mm3 (150-450); Red Blood Count 4.52 mil/mm3 (4.50-5.90); Red Cell Distribution Width 13.4 % (11.6-17.2); White Blood Count 14.6 th/mm3 (4.0-11.0)
[2017-09-16 13:33] LABS: Anion Gap 9 meq/L (5-15); Aspartate Aminotransferase 17 U/L (15-37); Blood Urea Nitrogen 9 mg/dL (7-18); Calcium 8.6 mg/dL (8.5-10.1); Carbon Dioxide 25.1 meq/L (21.0-32.0); Chloride 101 meq/L (98-107); Glomerular Filtration Rate Greater Than 89 mL/min (>89); Glucose,Random 94 mg/dL (74-106); Potassium 3.8 meq/L (3.5-5.1); Sodium 135 meq/L (136-145)
[2017-09-16 13:35] LABS: Alanine Aminotransferase 20 U/L (12-78)
[2017-09-16 13:37] LABS: Alkaline Phosphatase 83 U/L (45-117); Total Protein 7.6 g/dL (6.4-8.2)
--- NOTE | 2017-09-16 15:13 | P.CONGS ---
[facility] Gen Surgery Consult Note Consult date: 09/16/17 Reason for consult: other (Gluteal abscess) Requesting physician: Osvaldo Galaviz Narrative: This is a 26 year old male with no significant past medical history who presented to the ED several days ago with complaints of a LEFT gluteal abscess. He was given antibiotics and sent home. He had increased pain with reports of chills and dizziness. He came back to the ED. The area was anesthetized and an incision and drainage was performed. Packing was placed into the wound. A CT abdomen/pelvis was obtained and showed an abscess in the gluteal region of the gluteus ivon. The area is currently draining. Mariposa LEE with the Wound Care Team saw the patient. She removed the packing and reports about 75 200 mL of serosanguineous purulent malodorous drainage drained from the wound. The patient continues to have low grade fevers. Of note, the patient had a similar episode in [place] about 12 years ago. A General Surgery consultation has been requested. <Ashly Mejia - Last Filed: 09/16/17 17:01> Reason for consult: other Narrative: CONSULTATION NOTE FOR SURGICAL ATTENDING, DR. JOSH LOFTON <Josh Lofton - Last Filed: 09/16/17 18:41> Review of Systems Constitutional: Reports chills, Denies fever(s) Eyes: Denies blurry vision Ears, Nose, Mouth, and Throat: Denies difficulty swallowing Cardiovascular: Denies chest pain, Denies chest pain at rest, Denies chest pain with activity Respiratory: Denies chest congestion, Denies cough Gastrointestinal: Denies abdominal pain Genitourinary: Denies side pain Musculoskeletal: Denies back pain, Denies stiffness Skin/Breast: Denies lesions Neurologic: Denies frequent falls, Denies loss of vision Psychiatric: Denies anxiety, Denies depression Endocrine: Denies cold intolerance Hematologic/Lymphatic: Denies easy bleeding Allergic/Immunologic: Denies lip swelling (c/o gluteal pains with drainage ) <Ashly Mejia - Last Filed: 09/16/17 17:01> PMFSH - History History Provided By: Patient - Medical / Surgical Hx Neg / Unobtainable Medical Problems Denied: Yes - Medical History Medical History: Medical History (Last Reviewed 09/16/17 @ 15:11 by FRANCINE Marr) Patient denies medical problems - Surgical History Surgical History: Surgical History (Last Updated 09/16/17 @ 15:11 by FRANCINE Marr) History of incision and drainage No history of previous surgery - Family History Family History: Family History (Last Updated 09/15/17 @ 23:47 by Michoacano Byrd MD) Mother Hypertension Father Diabetes - Tobacco History Second Hand Smoke Exposure: No Tobacco Use In Past 30 Days: Yes Smoking Status: Current every day smoker Tobacco Type: Cigarettes - Alcohol History How Often Do You Have a Drink Containing Alcohol: 2 to 3 times a week - Substance Use History Substance History: Active Abuse - Substance Use Type Marijuana Status: Active Route Used: Inhalation Frequency: DAILY OUNCE OR MORE A DAY Reason for Use: Feels Good - Travel History Recent Travel in the [place] Within the Last 8 Weeks: No Recent Travel Out of the Country Within the Last 8 Weeks: No - Immunization History Tetanus Immunization: >5 Years Hx Influenza Vaccine This Season: No <Ashly Mejia - Last Filed: 09/16/17 17:01> - Medical History Medical History: Medical History (Last Reviewed 09/16/17 @ 15:11 by FRANCINE Marr) Patient denies medical problems - Surgical History Surgical History: Surgical History (Last Updated 09/16/17 @ 15:11 by FRANCINE Marr) History of incision and drainage No history of previous surgery - Family History Family History: Family History (Last Updated 09/15/17 @ 23:47 by Michoacano Byrd MD) Mother Hypertension Father Diabetes <RollyJosh - Last Filed: 09/16/17 18:41> Medications and Allergies Active Medications: Active Medications Hydrocodone Bitart/Acetaminophen (Tererro 10/325) 1 tab PO Q4H PRN PRN Reason: PAIN SCALE 6 TO 10 Hydrocodone Bitart/Acetaminophen (Tererro 5/325) 1 tab PO Q4H PRN PRN Reason: PAIN SCALE 3 TO 5 Last Admin: 09/16/17 05:13 Dose: 1 tab Al Hydroxide/Mg Hydroxide (Milk Of Magnesia Liq) 30 ml PO Q12H PRN PRN Reason: Mild Constipation Bisacodyl (Dulcolax Supp) 10 mg RECTAL DAILY PRN PRN Reason: SEVERE CONSITIPATION Piperacillin/Tazobactam/Dextrose (Zosyn 4.5 Gm Premix) 4.5 gm in 100 mls @ 200 mls/hr IV.SIG Q6H [facility] Last Admin: 09/16/17 10:58 Dose: 200 mls/hr Pharmacy Profile Note (Vancomycin Consult Pharmacy) 0 mls @ 0 mls/hr OTHER UNSCH [facility] Sodium Chloride (Ns Inj) 1,000 mls @ 100 mls/hr IV.CONT .Q10H [facility] Last Admin: 09/16/17 01:26 Dose: 100 mls/hr Vancomycin HCl 1,750 mg/ (Sodium Chloride) 535 mls @ 258.75 mls/hr IV.SIG Q12H [facility] Lactulose (Lactulose Liq) 30 ml PO DAILY PRN PRN Reason: SEVERE CONSITIPATION Miscellaneous Information ([facility] Ordered Lab Info) 0 each OTHER ONCE ONE Stop: 09/17/17 14:46 Naloxone HCl (Narcan Inj) 0.4 mg IV.PUSH UNSCH PRN PRN Reason: SEE LABEL COMMENTS Sennosides (Senokot) 17.2 mg PO Q12H PRN PRN Reason: Moderate Constipation Temazepam (Restoril) 15 mg PO HS PRN PRN Reason: INSOMNIA <Ashly Mejia - Last Filed: 09/16/17 17:01> Active Medications: Active Medications Hydrocodone Bitart/Acetaminophen ([place] 10/325) 1 tab PO Q4H PRN PRN Reason: PAIN SCALE 6 TO 10 Hydrocodone Bitart/Acetaminophen (Tererro 5/325) 1 tab PO Q4H PRN PRN Reason: PAIN SCALE 3 TO 5 Last Admin: 09/16/17 05:13 Dose: 1 tab Al Hydroxide/Mg Hydroxide (Milk Of Magnesia Liq) 30 ml PO Q12H PRN PRN Reason: Mild Constipation Bisacodyl (Dulcolax Supp) 10 mg RECTAL DAILY PRN PRN Reason: SEVERE CONSITIPATION Piperacillin/Tazobactam/Dextrose (Zosyn 4.5 Gm Premix) 4.5 gm in 100 mls @ 200 mls/hr IV.SIG Q6H [facility] Last Admin: 09/16/17 15:48 Dose: 200 mls/hr Pharmacy Profile Note (Vancomycin Consult Pharmacy) 0 mls @ 0 mls/hr OTHER UNSCH [facility] Sodium Chloride (Ns Inj) 1,000 mls @ 100 mls/hr IV.CONT .Q10H [facility] Last Admin: 09/16/17 15:47 Dose: 100 mls/hr Vancomycin HCl 1,750 mg/ (Sodium Chloride) 535 mls @ 258.75 mls/hr IV.SIG Q12H [facility] Last Admin: 09/16/17 15:53 Dose: 258.75 mls/hr Lactulose (Lactulose Liq) 30 ml PO DAILY PRN PRN Reason: SEVERE CONSITIPATION Miscellaneous Information ([facility] Ordered Lab Info) 0 each OTHER ONCE ONE Stop: 09/17/17 14:46 Naloxone HCl (Narcan Inj) 0.4 mg IV.PUSH UNSCH PRN PRN Reason: SEE LABEL COMMENTS Sennosides (Senokot) 17.2 mg PO Q12H PRN PRN Reason: Moderate Constipation Temazepam (Restoril) 15 mg PO HS PRN PRN Reason: INSOMNIA <Josh Lofton - Last Filed: 09/16/17 18:41> Allergies Allergy/AdvReac Type Severity Reaction Status Date / Time No Known Allergies Allergy Verified 09/15/17 19:17 Exam Vital signs: Vital Signs 08/01/18 19:17 09/15/17 20:59 09/15/17 21:00 Temperature 100.5 F H Pulse Rate 108 H 93 H 89 Respiratory Rate 18 16 Blood Pressure 127/86 128/58 L Pulse Oximetry 99 98 09/15/17 21:20 09/15/17 23:16 09/16/17 04:00 Temperature 99.5 F 99.1 F Pulse Rate 82 85 Respiratory Rate 15 15 Blood Pressure 122/58 L 115/68 Pulse Oximetry 100 96 96 09/16/17 08:00 09/16/17 12:00 Temperature 99.7 F H 99.3 F Pulse Rate 86 87 Respiratory Rate 17 18 Blood Pressure 110/66 107/62 Pulse Oximetry 97 94 L Intake & Output 09/15/17 09/16/17 09/16/17 18:59 06:59 18:59 Intake Total 550 / 550 Output Total 300 / 300 Balance 250 / 250 Weight 112.62 kg Intake: IV 550 / 550 Ofirmev Inj 1,000 mg In 100 ml 100 / 100 @ 400 mls/hr IV.SIG ONCE ONE Rx #:[id number] Zosyn 4.5 GM Premix 4.5 gm In 200 / 200 100 ml @ 200 mls/hr IV.SIG Q6H [facility] Rx#:[id number] Vancomycin Inj 1,000 MG In NS 250 / 250 Inj 250 ML @ 250 mls/hr IV.SIG STAT STA Rx#:[id number] Output: Urine 300 / 300 Other: Date of Last Bowel Movement 09/15/17 09/15/17 Weight On Admission 112.62 kg Narrative: GENERAL: Very pleasant 26 year old male resting in bed in no acute distress. SKIN: LEFT gluteus-- with open area with purulent drainage from wound--- induration surrounding area; RIGHT gluteus with no open area and fairly large area of induration. HEAD: Atraumatic. Normocephalic. EYES: Pupils equal and round. No scleral icterus. No injection or drainage. ENT: No nasal bleeding or discharge. Mucous membranes pink and moist. NECK: Trachea midline. CARDIOVASCULAR: Regular rate and rhythm. RESPIRATORY: No accessory muscle use. Clear to auscultation. Breath sounds equal bilaterally. GASTROINTESTINAL: Abdomen soft, non-tender, nondistended. Hepatic and splenic margins not palpable. MUSCULOSKELETAL: Extremities without clubbing, cyanosis, or edema. No obvious deformities. NEUROLOGICAL: Awake and alert. No obvious cranial nerve deficits. Motor grossly within normal limits. Five out of 5 muscle strength in the arms and legs. Normal speech. PSYCHIATRIC: Appropriate mood and affect; insight and judgment normal. <Ashly Mejia - Last Filed: 09/16/17 17:01> Vital signs: Vital Signs 09/15/17 19:17 09/15/17 20:59 09/15/17 21:00 Temperature 100.5 F H Pulse Rate 108 H 93 H 89 Respiratory Rate 18 16 Blood Pressure 127/86 128/58 L Pulse Oximetry 99 98 09/15/17 21:20 09/15/17 23:16 09/16/17 04:00 Temperature 99.5 F 99.1 F Pulse Rate 82 85 Respiratory Rate 15 15 Blood Pressure 122/58 L 115/68 Pulse Oximetry 100 96 96 09/16/17 08:00 09/16/17 12:00 09/16/17 16:00 Temperature 99.7 F H 99.3 F 99 F Pulse Rate 86 87 81 Respiratory Rate 17 18 18 Blood Pressure 110/66 107/62 111/70 Pulse Oximetry 97 94 L 97 Intake & Output 09/15/17 09/16/17 09/16/17 18:59 06:59 18:59 Intake Total 550 / 550 1100 / 1100 Output Total 300 / 300 1100 / 1100 Balance 250 / 250 0 / 0 Weight 112.62 kg Intake: IV 550 / 550 1100 / 1100 NS Inj 1,000 ML @ 100 mls/hr IV 1000 / 1000 .CONT .Q10H [facility] Rx#:[id number] Ofirmev Inj 1,000 mg In 100 ml 100 / 100 @ 400 mls/hr IV.SIG ONCE ONE Rx #:[id number] Zosyn 4.5 GM Premix 4.5 gm In 200 / 200 100 / 100 100 ml @ 200 mls/hr IV.SIG Q6H [facility] Rx#:[id number] Vancomycin Inj 1,000 MG In NS 250 / 250 Inj 250 ML @ 250 mls/hr IV.SIG STAT STA Rx#:[id number] Oral 0 / 0 Output: Urine 300 / 300 1100 / 1100 Other: Date of Last Bowel Movement 09/15/17 09/15/17 # Bowel Movements 0 Weight On Admission 112.62 kg - Additional findings Additional findings: Patient appears to have a complex pilonidal abscess in the gluteal region partially drained. <Josh Lofton - Last Filed: 09/16/17 18:41> Results - Labs 09/16/17 12:30 09/16/17 12:30 Abnormal lab results 09/15/17 09/15/17 09/16/17 Range/Units 21:00 21:00 12:30 WBC 14.2 H 14.6 H (4.0-11.0) th/mm3 Neut % (Auto) 81.9 H 79.9 H (16.0-70.0) % [place] % (Auto) 8.4 H (0.0-8.0) % Neut # (Auto) 11.6 H 11.7 H (1.8-7.7) th/mm3 [place] # (Auto) 1.0 H 1.2 H (0.0-0.9) th/mm3 Sodium 134 L (136-145) meq/L Total Bilirubin (0.2-1.0) mg/dL Total Protein 8.3 H (6.4-8.2) g/dL Albumin (3.4-5.0) g/dL 09/16/17 Range/Units 12:30 WBC (4.0-11.0) th/mm3 Neut % (Auto) (16.0-70.0) % [place] % (Auto) (0.0-8.0) % Neut # (Auto) (1.8-7.7) th/mm3 [place] # (Auto) (0.0-0.9) th/mm3 Sodium 135 L (136-145) meq/L Total Bilirubin 1.3 H (0.2-1.0) mg/dL Total Protein (6.4-8.2) g/dL Albumin 3.0 L (3.4-5.0) g/dL Diabetes panel 09/15/17 09/16/17 Range/Units 21:00 12:30 Sodium 134 L 135 L (136-145) meq/L Potassium 3.8 3.8 (3.5-5.1) meq/L Chloride 101 101 (98-107) meq/L Carbon Dioxide 26.1 25.1 (21.0-32.0) meq/L BUN 10 9 (7-18) mg/dL Creatinine 1.09 0.94 (0.60-1.30) mg/dL Calcium 8.8 8.6 (8.5-10.1) mg/dL AST 15 17 (15-37) U/L ALT 25 20 (12-78) U/L Alkaline Phosphatase 90 83 (45-117) U/L Total Protein 8.3 H 7.6 D (6.4-8.2) g/dL Albumin 3.4 3.0 L (3.4-5.0) g/dL Calcium panel 09/15/17 09/16/17 Range/Units 21:00 12:30 Calcium 8.8 8.6 (8.5-10.1) mg/dL Albumin 3.4 3.0 L (3.4-5.0) g/dL Pituitary panel 09/15/17 09/16/17 Range/Units 21:00 12:30 Sodium 134 L 135 L (136-145) meq/L Potassium 3.8 3.8 (3.5-5.1) meq/L Chloride 101 101 (98-107) meq/L Carbon Dioxide 26.1 25.1 (21.0-32.0) meq/L BUN 10 9 (7-18) mg/dL Creatinine 1.09 0.94 (0.60-1.30) mg/dL Calcium 8.8 8.6 (8.5-10.1) mg/dL Adrenal panel 18 09/16/17 Range/Units 21:00 12:30 Sodium 134 L 135 L (136-145) meq/L Potassium 3.8 3.8 (3.5-5.1) meq/L Chloride 101 101 (98-107) meq/L Carbon Dioxide 26.1 25.1 (21.0-32.0) meq/L BUN 10 9 (7-18) mg/dL Creatinine 1.09 0.94 (0.60-1.30) mg/dL Calcium 8.8 8.6 (8.5-10.1) mg/dL Total Bilirubin 0.6 1.3 H (0.2-1.0) mg/dL AST 15 17 (15-37) U/L ALT 25 20 (12-78) U/L Alkaline Phosphatase 90 83 (45-117) U/L Total Protein 8.3 H 7.6 D (6.4-8.2) g/dL Albumin 3.4 3.0 L (3.4-5.0) g/dL All other labs normal. <Ashly Mejia - Last Filed: 09/16/17 17:01> - Labs 09/16/17 12:30 09/16/17 12:30 Abnormal lab results 09/15/17 09/15/17 09/16/17 Range/Units 21:00 21:00 12:30 WBC 14.2 H 14.6 H (4.0-11.0) th/mm3 Neut % (Auto) 81.9 H 79.9 H (16.0-70.0) % [place] % (Auto) 8.4 H (0.0-8.0) % Neut # (Auto) 11.6 H 11.7 H (1.8-7.7) th/mm3 [place] # (Auto) 1.0 H 1.2 H (0.0-0.9) th/mm3 Sodium 134 L (136-145) meq/L Total Bilirubin (0.2-1.0) mg/dL Total Protein 8.3 H (6.4-8.2) g/dL Albumin (3.4-5.0) g/dL 09/16/17 Range/Units 12:30 WBC (4.0-11.0) th/mm3 Neut % (Auto) (16.0-70.0) % [place] % (Auto) (0.0-8.0) % Neut # (Auto) (1.8-7.7) th/mm3 [place] # (Auto) (0.0-0.9) th/mm3 Sodium 135 L (136-145) meq/L Total Bilirubin 1.3 H (0.2-1.0) mg/dL Total Protein (6.4-8.2) g/dL Albumin 3.0 L (3.4-5.0) g/dL Diabetes panel 09/15/17 09/16/17 Range/Units 21:00 12:30 Sodium 134 L 135 L (136-145) meq/L Potassium 3.8 3.8 (3.5-5.1) meq/L Chloride 101 101 (98-107) meq/L Carbon Dioxide 26.1 25.1 (21.0-32.0) meq/L BUN 10 9 (7-18) mg/dL Creatinine 1.09 0.94 (0.60-1.30) mg/dL Calcium 8.8 8.6 (8.5-10.1) mg/dL AST 15 17 (15-37) U/L ALT 25 20 (12-78) U/L Alkaline Phosphatase 90 83 (45-117) U/L Total Protein 8.3 H 7.6 D (6.4-8.2) g/dL Albumin 3.4 3.0 L (3.4-5.0) g/dL Calcium panel 09/15/17 09/16/17 Range/Units 21:00 12:30 Calcium 8.8 8.6 (8.5-10.1) mg/dL Albumin 3.4 3.0 L (3.4-5.0) g/dL Pituitary panel 09/15/17 09/16/17 Range/Units 21:00 12:30 Sodium 134 L 135 L (136-145) meq/L Potassium 3.8 3.8 (3.5-5.1) meq/L Chloride 101 101 (98-107) meq/L Carbon Dioxide 26.1 25.1 (21.0-32.0) meq/L BUN 10 9 (7-18) mg/dL Creatinine 1.09 0.94 (0.60-1.30) mg/dL Calcium 8.8 8.6 (8.5-10.1) mg/dL Adrenal panel 09/15/17 09/16/17 Range/Units 21:00 12:30 Sodium 134 L 135 L (136-145) meq/L Potassium 3.8 3.8 (3.5-5.1) meq/L Chloride 101 101 (98-107) meq/L Carbon Dioxide 26.1 25.1 (21.0-32.0) meq/L BUN 10 9 (7-18) mg/dL Creatinine 1.09 0.94 (0.60-1.30) mg/dL Calcium 8.8 8.6 (8.5-10.1) mg/dL Total Bilirubin 0.6 1.3 H (0.2-1.0) mg/dL AST 15 17 (15-37) U/L ALT 25 20 (12-78) U/L Alkaline Phosphatase 90 83 (45-117) U/L Total Protein 8.3 H 7.6 D (6.4-8.2) g/dL Albumin 3.4 3.0 L (3.4-5.0) g/dL All other labs normal. - Imaging CT scan - abdomen: report reviewed, image reviewed CT scan - pelvis: report reviewed, image reviewed <Josh Lofton - Last Filed: 09/16/17 18:41> Assessment and Plan - Plan 26-year-old male with bilateral gluteal abscesses -We will plan for incision and drainage and possible wound VAC placement tonight in the OR -NPO -Obtain consents -Hold anticoagulation -Discussed plan with patient and at the bedside -All questions were answered -Thank you for this consult; we will continue to follow Discussed Condition With: Dr. Rolly Monge RN with Wound Care Chantal LEE Mr. Yang + at the bedside <Ashly Mejia - Last Filed: 09/16/17 17:01> - Attending Attestation CONSULTATION NOTE FOR SURGICAL ATTENDING, DR. JOSH LOFTON I agree with above assessment and plan. The exam, history, and the medical decision-making described in the above note were completed with the assistance of the mid-level provider. I reviewed and agree with the findings presented. I attest that I had a [id number] encounter with the patient on the same day, and personally performed and documented my assessment and findings in the medical record. The following services were provided during this hospital visit: Chart data review, vital sign assessments/reviewing monitor data Review of consultations notes if present. Medication orders/review and/or management Ordering and/or reviewing lab tests Ordering and/or interpreting/reviewing x-rays and/or diagnostic studies Care of the patient and discussion of the patient with the care team Documentation time To help prompt me to consider important information that might be impacting today's encounter and assessment, Information from prior notes written by myself or my colleagues may have been "brought forward/copy and pasted" into today's note. <Josh Lofton - Last Filed: 09/16/17 18:41>
[2017-09-16] MEDS: Vancomycin Inj 1,750 MG in Sodium Chlor 0.9% Inj 500 ML IV.SIG SCH (15:53)
[2017-09-16] MEDS ORDERED: fentaNYL Citrate Inj 250 MCG/5 ML Ampul ONE (16:46)
[2017-09-16] MEDS ORDERED: Bupivacaine/Epinephrine 0.5% Inj 50 ML Vial ONE (18:03)
--- NOTE | 2017-09-16 18:36 | P.OP ---
- Preoperative Diagnosis (1) Sacrococcygeal pilonidal cyst with abscess (2) Pilonidal cyst with abscess (3) Abscess and cellulitis of gluteal region (4) Sepsis - Postoperative Diagnosis (1) S/P surgical removal of pilonidal cyst (2) Pilonidal cyst with abscess (3) Sacrococcygeal pilonidal cyst with abscess Date of procedure: 09/16/17 Procedure: Drainage of Large complex pilonidal abscess With application of small VAC dressing Defect measured 9 x 5 cm Anesthesia: MONIEA Surgeon: Josh Lofton MD Pathology: other (Complex pilonidal) Operation and Findings: Patient taken the operating room placed in supine position after endotracheal anesthesia he was placed in the prone position Gluteal cheeks are then using silk tape. A complex pilonidal sinus is visualized with abscess coursing to the left side of the gluteal region. After prepping and draping and timeout is done He is already on antibiotics The pilonidal is probed and it connects to the small incision that was made on the left gluteal region medially. The cavity is quite extensive. We simply able make a elliptical incision to excise the pilonidal sinus and the excision that had been done previously. The area is full of clot and purulent material which is irrigated out copiously. All necrotic tissue and abscess is removed by sharp dissection using sharp scissors knives and scalpels. After utilizing the sharp instruments of scalpel scissors and knives we irrigated copiously hemostasis assured with the electrocautery device. Because of the extensive nature of the inflammation a small VAC is then placed in the opening that measures approximately 9 x 4.9 x 5 cm. I did anesthetize the area circumferentially with 1/4% Marcaine solution. The VAC device is applied at 125 mmHg and secured in the typical fashion The patient will be planned returning to the operating room for a VAC change early next week
[2017-09-16] MEDS ORDERED: *morphine SULFATE 4 MG/ML PERIprocedure ONLY ONE ×2 (19:10→19:23)
[2017-09-17] MEDS: Piperacil/Tazo 4.5 GM Premix 4.5 GM/100 ML BAG IV.SIG SCH ×4 (03:18→21:29)
[2017-09-17] MEDS: Vancomycin Inj 1,750 MG in Sodium Chlor 0.9% Inj 500 ML IV.SIG SCH ×2 (03:59→15:15)
[2017-09-17] MEDS: Sod Chloride 0.9% Inj 1,000 ML IV.CONT SCH ×3 (04:50→15:14)
[2017-09-17 07:46] LABS: Baso % (Auto) 0.3 % (0.0-2.0); Eos % (Auto) 0.1 % (0.0-4.0); Hematocrit 36.3 % (39.0-51.0); Hemoglobin 12.1 gm/dL (13.0-17.0); Lymph # (Auto) 1.3 th/mm3 (1.0-4.8); Lymph % (Auto) 7.6 % (9.0-44.0); Mean Corpuscular HGB Conc 33.2 % (32.0-36.0); Mean Corpuscular Hemoglobin 28.8 pg (27.0-34.0); Mean Corpuscular Volume 86.6 fL (80.0-100.0); Mean Platelet Volume 7.3 fL (7.0-11.0); Neut # (Auto) 14.5 th/mm3 (1.8-7.7); Platelet Count 366 th/mm3 (150-450); Red Blood Count 4.19 mil/mm3 (4.50-5.90); Red Cell Distribution Width 13.5 % (11.6-17.2); White Blood Count 16.8 th/mm3 (4.0-11.0)
[2017-09-17 08:21] LABS: Alanine Aminotransferase 21 U/L (12-78); Albumin 2.7 g/dL (3.4-5.0); Anion Gap 8 meq/L (5-15); Aspartate Aminotransferase 16 U/L (15-37); Blood Urea Nitrogen 13 mg/dL (7-18); Calcium 8.3 mg/dL (8.5-10.1); Carbon Dioxide 26.2 meq/L (21.0-32.0); Chloride 106 meq/L (98-107); Glomerular Filtration Rate Greater Than 89 mL/min (>89); Glucose,Random 122 mg/dL (74-106); Magnesium 2.5 mg/dL (1.5-2.5); Phosphorus 3.4 mg/dL (2.5-4.9); Potassium 4.2 meq/L (3.5-5.1); Sodium 140 meq/L (136-145)
[2017-09-17 08:30] LABS: Alkaline Phosphatase 78 U/L (45-117); Free T4 (Free Thyroxine) 1.37 ng/dL (0.76-1.46); Thyroid Stimulating Hormone 0.227 uIU/mL (0.358-3.740)
--- NOTE | 2017-09-17 09:42 | P.PNIM ---
Subjective Interval history: 36-year-old male who presents with one-week history of aggressively worsening constant sharp nonradiating over the right buttock. Patient visited the ER on , was prescribed a course of Bactrim which she has been taking. Unfortunately, the pain has continued to worsen and swelling has worsened as well. Patient denies any chest pain, shortness of breath, nausea, vomiting, fevers, chills. Patient had incision and drainage performed in the ER, now reports pain has much improved. 8-2 HAD BUTTOCKS ABSCESS I&D IN ER YESTERDAY ADMITTED AREA IS PACKED FOLLOW UP ON LEFT BUTTOCKS ABSCESS DW RN AND PT PATIENT STATES AREA IS PAINFUL STILL PACKED WILL CONSULT WOUND CARE FOR EVALUATIONS 8-3 had surgery yesterday regarding the left-sided pilonidal cyst currently has a wound VAC in place Continue on antibiotics Discussed with RN and patient and family A.m. labs Physical Exam Vital signs: Vital Signs 09/16/17 12:00 09/16/17 16:00 09/16/17 18:45 Temperature 99.3 F 99 F 97.9 F Pulse Rate 87 81 100 H Respiratory Rate 18 18 16 Blood Pressure 107/62 111/70 111/74 Pulse Oximetry 94 L 97 96 09/16/17 18:51 09/16/17 19:00 09/16/17 19:15 Temperature 99.0 F 99.0 F Pulse Rate 91 H 91 H 87 Respiratory Rate 16 14 14 Blood Pressure 106/56 L 109/56 L 111/59 L Pulse Oximetry 96 96 95 09/16/17 19:30 09/16/17 19:45 09/16/17 20:00 Temperature 99.0 F 99.0 F 98.6 F Pulse Rate 90 87 91 H Respiratory Rate 14 14 17 Blood Pressure 107/57 L 109/56 L 117/62 Pulse Oximetry 93 L 94 L 96 09/17/17 00:00 09/17/17 04:00 09/17/17 08:00 Temperature 98.4 F 98.7 F 98.1 F Pulse Rate 70 61 60 Respiratory Rate 18 16 16 Blood Pressure 121/57 L 117/66 114/66 Pulse Oximetry 97 95 96 Intake & Output 09/16/17 09/17/17 09/17/17 18:59 06:59 18:59 Intake Total 1100 / 1100 2535.00 / 2535.00 Output Total 1100 / 1100 1220 / 1220 Balance 0 / 0 1315.00 / 1315.00 Intake: IV 1100 / 1100 835.00 / 835.00 NS Inj 1,000 ML @ 100 mls/hr IV 1000 / 1000 .CONT .Q10H CLUADY Rx#:[id number] Zosyn 4.5 GM Premix 4.5 gm In 100 / 100 300 / 300 100 ml @ 200 mls/hr IV.SIG Q6H CLAUDY Rx#:[id number] Vancomycin Inj 1,750 MG In NS 535.00 / 535.00 Inj 500 ML @ 258.75 mls/hr IV. SIG Q12H CLAUDY Rx#:[id number] Oral 0 / 0 700 / 700 Anesthesia Amount 1000 / 1000 Output: Urine 1100 / 1100 1200 / 1200 Estimated Blood Loss 20 / 20 Other: Mode Setting Buttocks Continuous Continuous Date of Last Bowel Movement 09/15/17 09/15/17 # Bowel Movements 0 Narrative: GENERAL: Patient lying in bed. Appears comfortable. SKIN: Warm and dry. --left buttocks has wound VAC in place HEAD: Atraumatic. Normocephalic. EYES: Pupils equal and round. No scleral icterus. No injection or drainage. ENT: No nasal bleeding or discharge. Mucous membranes pink and moist. NECK: Trachea midline. No JVD. CARDIOVASCULAR: Regular rate and rhythm. RESPIRATORY: No accessory muscle use. Clear to auscultation. Breath sounds equal bilaterally. GASTROINTESTINAL: Abdomen soft, non-tender, nondistended. Hepatic and splenic margins not palpable. MUSCULOSKELETAL: Extremities without clubbing, cyanosis, or edema. No obvious deformities. Patient with left superior gluteal abscess which has been incised , drained, packed. Draining serosanguineous fluid at this time. Left buttocks area is dressed with wound VAC in place NEUROLOGICAL: Awake and alert. No obvious cranial nerve deficits. Motor grossly within normal limits. Five out of 5 muscle strength in the arms and legs. Normal speech. PSYCHIATRIC: Appropriate mood and affect; insight and judgment normal. Results - Labs CBC & Chem 7: 09/17/17 07:15 09/17/17 07:15 Laboratory Results - last 24 hr 09/16/17 09/16/17 09/17/17 12:30 12:30 07:15 WBC 14.6 H 16.8 H RBC 4.52 4.19 L Hgb 13.1 12.1 L Hct 39.2 36.3 L MCV 86.9 86.6 MCH 29.0 28.8 MCHC 33.4 33.2 RDW 13.4 13.5 Plt Count 360 366 MPV 7.3 7.3 Neut % (Auto) 79.9 H 86.0 H Lymph % (Auto) 10.7 7.6 L Hopkins % (Auto) 8.4 H 6.0 Eos % (Auto) 0.7 0.1 Baso % (Auto) 0.3 0.3 Neut # (Auto) 11.7 H 14.5 H Lymph # (Auto) 1.6 1.3 Hopkins # (Auto) 1.2 H 1.0 H Eos # (Auto) 0.1 0.0 Baso # (Auto) 0.0 0.0 WBC Differential . . Differential Comment Auto diff final Auto diff final Sodium 135 L Potassium 3.8 Chloride 101 Carbon Dioxide 25.1 Anion Gap 9 BUN 9 Creatinine 0.94 Estimated GFR Greater than 89 Random Glucose 94 Calcium 8.6 Phosphorus Magnesium Total Bilirubin 1.3 H AST 17 ALT 20 Alkaline Phosphatase 83 Total Protein 7.6 D Albumin 3.0 L TSH Free T4 09/17/17 07:15 WBC RBC Hgb Hct MCV MCH MCHC RDW Plt Count MPV Neut % (Auto) Lymph % (Auto) Hopkins % (Auto) Eos % (Auto) Baso % (Auto) Neut # (Auto) Lymph # (Auto) Hopkins # (Auto) Eos # (Auto) Baso # (Auto) WBC Differential Differential Comment Sodium 140 Potassium 4.2 Chloride 106 Carbon Dioxide 26.2 Anion Gap 8 BUN 13 Creatinine 0.92 Estimated GFR Greater than 89 Random Glucose 122 H Calcium 8.3 L Phosphorus 3.4 Magnesium 2.5 Total Bilirubin 0.5 AST 16 ALT 21 Alkaline Phosphatase 78 Total Protein 7.0 D Albumin 2.7 L TSH 0.227 L Free T4 1.37 Microbiology 09/15/17 22:30 Abscess - Buttock Gram Stain - Final 09/15/17 22:30 Abscess - Buttock Wound Culture - Final 09/15/17 20:55 Blood - Peripheral Aerobic Blood Culture - Preliminary No growth in 1 day 09/15/17 20:55 Blood - Peripheral Anaerobic Blood Culture - Preliminary No growth in 1 day 09/15/17 21:00 Blood - Peripheral Aerobic Blood Culture - Preliminary No growth in 1 day 09/15/17 21:00 Blood - Peripheral Anaerobic Blood Culture - Preliminary No growth in 1 day - Imaging Abdomen/Pelvis CT 09/15/17 20:40 CONCLUSION: 1. Abscess in the gluteal region between the gluteus ivon musculature posterior to the coccyx measuring up to 7.6 x 4 cm. No extension into the ischiorectal fossae identified. Cellulitis extends to the anal verge. 2. No acute findings within the abdomen and pelvis. - Procedures Left buttocks abscess incision and drainage by the emergency room on September 15 (1) Sacrococcygeal pilonidal cyst with abscess (2) Pilonidal cyst with abscess (3) Abscess and cellulitis of gluteal region (4) Sepsis - Postoperative Diagnosis (1) S/P surgical removal of pilonidal cyst (2) Pilonidal cyst with abscess (3) Sacrococcygeal pilonidal cyst with abscess Date of procedure: 09/16/17 Procedure: Drainage of Large complex pilonidal abscess With application of small VAC dressing Defect measured 9 x 5 cm Anesthesia: JUVE Surgeon: Josh Lofton MD Pathology: other (Complex pilonidal) Operation and Findings: Patient taken the operating room placed in supine position after endotracheal anesthesia he was placed in the prone position Gluteal cheeks are then using silk tape. A complex pilonidal sinus is visualized with abscess coursing to the left side of the gluteal region. After prepping and draping and timeout is done He is already on antibiotics The pilonidal is probed and it connects to the small incision that was made on the left gluteal region medially. The cavity is quite extensive. We simply able make a elliptical incision to excise the pilonidal sinus and the excision that had been done previously. The area is full of clot and purulent material which is irrigated out copiously. All necrotic tissue and abscess is removed by sharp dissection using sharp scissors knives and scalpels. After utilizing the sharp instruments of scalpel scissors and knives we irrigated copiously hemostasis assured with the electrocautery device. Because of the extensive nature of the inflammation a small VAC is then placed in the opening that measures approximately 9 x 4.9 x 5 cm. I did anesthetize the area circumferentially with 1/4% Marcaine solution. The VAC device is applied at 125 mmHg and secured in the typical fashion The patient will be planned returning to the operating room for a VAC change early next week Documented By: Josh Lofton MD 09/16/17 3699 Assessment and Plan - Plan Sepsis Left gluteal abscess/pilonidal cyst status post incision and drainage by general surgery on September 16 --currently has a wound VAC in place Failure of outpatient treatment with Bactrim Fever 100.5. Heart rate 108 on admission, leukocytosis 14.2. = CT pelvis confirms some 0.6 x 4 cm abscess without fasciitis . =abscess has been incised and drained. = Lactate not elevated. = Continue broad-spectrum antibiotics to cover MRSA, anaerobes. Pending cultures On Vanco and Zosyn Pain control Tobacco abuse. Cessation counseling provided. A.m. labs Consult wound care Consult general surgery Currently has wound VAC in place involving left buttocks area Code Status: Full code Discussed Condition With: RN and patient and family at bedside Discharge Planning: Pending improvement of the abscess and identification of the species in the abscess
[2017-09-17] MEDS ORDERED: Pharmacy Ordered Lab Info OTHER ONE (14:45)
[2017-09-17 16:48] LABS: Hemoglobin A1c 5.9 % (4.3-6.0)
[2017-09-18] MEDS: Sod Chloride 0.9% Inj 1,000 ML IV.CONT SCH (01:26)
[2017-09-18] MEDS: Piperacil/Tazo 4.5 GM Premix 4.5 GM/100 ML BAG IV.SIG SCH ×4 (04:03→22:08)
[2017-09-18 07:13] LABS: Baso # (Auto) 0.1 th/mm3 (0.0-0.2); Baso % (Auto) 0.5 % (0.0-2.0); Eos # (Auto) 0.2 th/mm3 (0.0-0.4); Eos % (Auto) 1.4 % (0.0-4.0); Hemoglobin 11.8 gm/dL (13.0-17.0); Lymph # (Auto) 3.6 th/mm3 (1.0-4.8); Lymph % (Auto) 27.6 % (9.0-44.0); Mean Corpuscular HGB Conc 32.7 % (32.0-36.0); Mean Corpuscular Hemoglobin 28.9 pg (27.0-34.0); Mean Corpuscular Volume 88.4 fL (80.0-100.0); Mean Platelet Volume 7.5 fL (7.0-11.0); Mono % (Auto) 7.6 % (0.0-8.0); Neut # (Auto) 8.3 th/mm3 (1.8-7.7); Neut % (Auto) 62.9 % (16.0-70.0); Platelet Count 369 th/mm3 (150-450); Red Blood Count 4.07 mil/mm3 (4.50-5.90); Red Cell Distribution Width 13.9 % (11.6-17.2); White Blood Count 13.2 th/mm3 (4.0-11.0)
[2017-09-18 07:35] LABS: Alanine Aminotransferase 20 U/L (12-78); Albumin 2.3 g/dL (3.4-5.0); Anion Gap 9 meq/L (5-15); Aspartate Aminotransferase 18 U/L (15-37); Blood Urea Nitrogen 8 mg/dL (7-18); Carbon Dioxide 23.6 meq/L (21.0-32.0); Chloride 110 meq/L (98-107); Glomerular Filtration Rate Greater Than 89 mL/min (>89); Glucose,Random 87 mg/dL (74-106); Magnesium 2.1 mg/dL (1.5-2.5); Sodium 143 meq/L (136-145)
[2017-09-18 07:36] LABS: Phosphorus 3.3 mg/dL (2.5-4.9)
[2017-09-18 07:41] LABS: Alkaline Phosphatase 65 U/L (45-117); Total Protein 6.4 g/dL (6.4-8.2)
[2017-09-18] MEDS: Vancomycin Inj 2,000 MG in Sodium Chlor 0.9% Inj 500 ML IV.SIG SCH (12:20)
--- NOTE | 2017-09-18 12:34 | P.PNIM ---
Subjective Interval history: Wound VAC in place. Pain control. Cultures not yet finalized. Physical Exam Vital signs: Vital Signs 09/17/17 16:00 09/17/17 17:00 09/17/17 20:00 Temperature 98.5 F 97.7 F 97.2 F L Pulse Rate 70 78 69 Respiratory Rate 16 20 18 Blood Pressure 118/57 L 132/60 125/75 Pulse Oximetry 97 96 99 09/18/17 00:00 09/18/17 04:00 09/18/17 08:00 Temperature 97.9 F 98.8 F 98.3 F Pulse Rate 77 91 H 63 Respiratory Rate 18 18 20 Blood Pressure 125/75 158/79 H 148/68 H Pulse Oximetry 97 92 L 98 Intake & Output 09/17/17 09/18/17 09/18/17 18:59 06:59 18:59 Intake Total 2335 / 2335 1920 / 1920 1100 / 1100 Output Total 1225 / 1225 Balance 1110 / 1110 1920 / 1920 1100 / 1100 Weight 115.9 kg Intake: IV 1735 / 1735 1200 / 1200 1100 / 1100 NS Inj 1,000 ML @ 100 mls/hr IV 1000 / 1000 1000 / 1000 1000 / 1000 .CONT .Q10H CLAUDY Rx#:[id number] Zosyn 4.5 GM Premix 4.5 gm In 200 / 200 200 / 200 100 / 100 100 ml @ 200 mls/hr IV.SIG Q6H CLAUDY Rx#:[id number] Vancomycin Inj 1,750 MG In NS 535 / 535 Inj 500 ML @ 258.75 mls/hr IV. SIG Q12H CLAUDY Rx#:[id number] Oral 600 / 600 720 / 720 Output: Urine 1225 / 1225 Other: Mode Setting Buttocks Continuous Continuous # Voids 1 3 Date of Last Bowel Movement 09/17/17 # Bowel Movements 1 Narrative: GENERAL: NAD, A&Ox3 HEAD: Normocephalic. NECK: Supple, trachea midline. No lymphadenopathy. EYES: No scleral icterus. No injection or drainage. CARDIOVASCULAR: Regular rate and rhythm without murmurs, gallops, or rubs. RESPIRATORY: Breath sounds equal bilaterally. No accessory muscle use. GASTROINTESTINAL: Abdomen soft, non-tender, nondistended. MUSCULOSKELETAL: No cyanosis, or edema. SKIN: Warm and dry. NEURO: No focal neurological deficits. Results - Labs CBC & Chem 7: 09/18/17 06:00 09/18/17 06:00 Laboratory Results - last 24 hr 09/17/17 09/17/17 09/18/17 07:15 15:00 06:00 WBC 13.2 H RBC 4.07 L Hgb 11.8 L Hct 36.0 L MCV 88.4 MCH 28.9 MCHC 32.7 RDW 13.9 Plt Count 369 MPV 7.5 Neut % (Auto) 62.9 Lymph % (Auto) 27.6 Dougherty % (Auto) 7.6 Eos % (Auto) 1.4 Baso % (Auto) 0.5 Neut # (Auto) 8.3 H Lymph # (Auto) 3.6 Dougherty # (Auto) 1.0 H Eos # (Auto) 0.2 Baso # (Auto) 0.1 WBC Differential . Differential Comment Auto diff final Sodium Potassium Chloride Carbon Dioxide Anion Gap BUN Creatinine Estimated GFR Random Glucose Hemoglobin A1c 5.9 Calcium Phosphorus Magnesium Total Bilirubin AST ALT Alkaline Phosphatase Total Protein Albumin Vancomycin Trough 9.3 09/18/17 06:00 WBC RBC Hgb Hct MCV MCH MCHC RDW Plt Count MPV Neut % (Auto) Lymph % (Auto) Dougherty % (Auto) Eos % (Auto) Baso % (Auto) Neut # (Auto) Lymph # (Auto) Dougherty # (Auto) Eos # (Auto) Baso # (Auto) WBC Differential Differential Comment Sodium 143 Potassium 4.0 Chloride 110 H Carbon Dioxide 23.6 Anion Gap 9 BUN 8 Creatinine 0.80 Estimated GFR Greater than 89 Random Glucose 87 Hemoglobin A1c Calcium 8.0 L Phosphorus 3.3 Magnesium 2.1 Total Bilirubin 0.2 AST 18 ALT 20 Alkaline Phosphatase 65 Total Protein 6.4 D Albumin 2.3 L Vancomycin Trough Microbiology 09/15/17 20:55 Blood - Peripheral Aerobic Blood Culture - Preliminary No growth in 3 days 09/15/17 20:55 Blood - Peripheral Anaerobic Blood Culture - Preliminary No growth in 3 days 09/15/17 21:00 Blood - Peripheral Aerobic Blood Culture - Preliminary No growth in 3 days 09/15/17 21:00 Blood - Peripheral Anaerobic Blood Culture - Preliminary No growth in 3 days 09/15/17 22:30 Abscess - Buttock Gram Stain - Final 09/15/17 22:30 Abscess - Buttock Wound Culture - Final - Procedures Left buttocks abscess incision and drainage by the emergency room on September 15 (1) Sacrococcygeal pilonidal cyst with abscess (2) Pilonidal cyst with abscess (3) Abscess and cellulitis of gluteal region (4) Sepsis - Postoperative Diagnosis (1) S/P surgical removal of pilonidal cyst (2) Pilonidal cyst with abscess (3) Sacrococcygeal pilonidal cyst with abscess Date of procedure: 09/16/17 Procedure: Drainage of Large complex pilonidal abscess With application of small VAC dressing Defect measured 9 x 5 cm Anesthesia: GETA Surgeon: Josh Lofton MD Pathology: other (Complex pilonidal) Operation and Findings: Patient taken the operating room placed in supine position after endotracheal anesthesia he was placed in the prone position Gluteal cheeks are then using silk tape. A complex pilonidal sinus is visualized with abscess coursing to the left side of the gluteal region. After prepping and draping and timeout is done He is already on antibiotics The pilonidal is probed and it connects to the small incision that was made on the left gluteal region medially. The cavity is quite extensive. We simply able make a elliptical incision to excise the pilonidal sinus and the excision that had been done previously. The area is full of clot and purulent material which is irrigated out copiously. All necrotic tissue and abscess is removed by sharp dissection using sharp scissors knives and scalpels. After utilizing the sharp instruments of scalpel scissors and knives we irrigated copiously hemostasis assured with the electrocautery device. Because of the extensive nature of the inflammation a small VAC is then placed in the opening that measures approximately 9 x 4.9 x 5 cm. I did anesthetize the area circumferentially with 1/4% Marcaine solution. The VAC device is applied at 125 mmHg and secured in the typical fashion The patient will be planned returning to the operating room for a VAC change early next week Documented By: Josh Lofton MD 09/16/17 9405 Assessment and Plan - Plan 26-year-old male admitted secondary to gluteal abscess with outpatient treatment failure on Bactrim Sepsis Resolved Left gluteal abscess Pilonidal cyst Outpatient treatment failure (Bactrim) Status post drainage on 09/16/[address] Surgeon following Follow cultures Continue vancomycin Continue Zosyn Continue wound care Continue pain treatments Nicotine dependence Cessation recommended DVT prophylaxis Lovenox Discharge Planning: Pending improvement of the abscess and identification of the species in the abscess
--- NOTE | 2017-09-18 12:43 | P.PN ---
Subjective Interval history: No complaints; PO pain meds working Wants to know if he is going to have stitches after procedure on Wednesday; he will ask Dr. Lofton tomorrow Physical Exam Vital signs: Vital Signs 09/17/17 16:00 09/17/17 17:00 09/17/17 20:00 Temperature 98.5 F 97.7 F 97.2 F L Pulse Rate 70 78 69 Respiratory Rate 16 20 18 Blood Pressure 118/57 L 132/60 125/75 Pulse Oximetry 97 96 99 09/18/17 00:00 09/18/17 04:00 09/18/17 08:00 Temperature 97.9 F 98.8 F 98.3 F Pulse Rate 77 91 H 63 Respiratory Rate 18 18 20 Blood Pressure 125/75 158/79 H 148/68 H Pulse Oximetry 97 92 L 98 Intake & Output 09/17/17 09/18/17 09/18/17 18:59 06:59 18:59 Intake Total 2335 / 2335 1920 / 1920 1100 / 1100 Output Total 1225 / 1225 Balance 1110 / 1110 1920 / 1920 1100 / 1100 Weight 115.9 kg Intake: IV 1735 / 1735 1200 / 1200 1100 / 1100 NS Inj 1,000 ML @ 100 mls/hr IV 1000 / 1000 1000 / 1000 1000 / 1000 .CONT .Q10H CLAUDY Rx#:[id number] Zosyn 4.5 GM Premix 4.5 gm In 200 / 200 200 / 200 100 / 100 100 ml @ 200 mls/hr IV.SIG Q6H CLAUDY Rx#:[id number] Vancomycin Inj 1,750 MG In NS 535 / 535 Inj 500 ML @ 258.75 mls/hr IV. SIG Q12H CLAUDY Rx#:[id number] Oral 600 / 600 720 / 720 Output: Urine 1225 / 1225 Other: Mode Setting Buttocks Continuous Continuous # Voids 1 3 Date of Last Bowel Movement 09/17/17 # Bowel Movements 1 - Routine Exam Comments: VAC intact; cannister only 1/ full Results - Labs CBC & Chem 7: 09/18/17 06:00 09/18/17 06:00 Laboratory Results - last 24 hr 09/17/17 09/17/17 09/18/17 07:15 15:00 06:00 WBC 13.2 H RBC 4.07 L Hgb 11.8 L Hct 36.0 L MCV 88.4 MCH 28.9 MCHC 32.7 RDW 13.9 Plt Count 369 MPV 7.5 Neut % (Auto) 62.9 Lymph % (Auto) 27.6 Roberts % (Auto) 7.6 Eos % (Auto) 1.4 Baso % (Auto) 0.5 Neut # (Auto) 8.3 H Lymph # (Auto) 3.6 Roberts # (Auto) 1.0 H Eos # (Auto) 0.2 Baso # (Auto) 0.1 WBC Differential . Differential Comment Auto diff final Sodium Potassium Chloride Carbon Dioxide Anion Gap BUN Creatinine Estimated GFR Random Glucose Hemoglobin A1c 5.9 Calcium Phosphorus Magnesium Total Bilirubin AST ALT Alkaline Phosphatase Total Protein Albumin Vancomycin Trough 9.3 09/18/17 06:00 WBC RBC Hgb Hct MCV MCH MCHC RDW Plt Count MPV Neut % (Auto) Lymph % (Auto) Roberts % (Auto) Eos % (Auto) Baso % (Auto) Neut # (Auto) Lymph # (Auto) Roberts # (Auto) Eos # (Auto) Baso # (Auto) WBC Differential Differential Comment Sodium 143 Potassium 4.0 Chloride 110 H Carbon Dioxide 23.6 Anion Gap 9 BUN 8 Creatinine 0.80 Estimated GFR Greater than 89 Random Glucose 87 Hemoglobin A1c Calcium 8.0 L Phosphorus 3.3 Magnesium 2.1 Total Bilirubin 0.2 AST 18 ALT 20 Alkaline Phosphatase 65 Total Protein 6.4 D Albumin 2.3 L Vancomycin Trough Microbiology 09/15/17 20:55 Blood - Peripheral Aerobic Blood Culture - Preliminary No growth in 3 days 09/15/17 20:55 Blood - Peripheral Anaerobic Blood Culture - Preliminary No growth in 3 days 09/15/17 21:00 Blood - Peripheral Aerobic Blood Culture - Preliminary No growth in 3 days 09/15/17 21:00 Blood - Peripheral Anaerobic Blood Culture - Preliminary No growth in 3 days 09/15/17 22:30 Abscess - Buttock Gram Stain - Final 09/15/17 22:30 Abscess - Buttock Wound Culture - Final - Procedures Left buttocks abscess incision and drainage by the emergency room on September 15 (1) Sacrococcygeal pilonidal cyst with abscess (2) Pilonidal cyst with abscess (3) Abscess and cellulitis of gluteal region (4) Sepsis - Postoperative Diagnosis (1) S/P surgical removal of pilonidal cyst (2) Pilonidal cyst with abscess (3) Sacrococcygeal pilonidal cyst with abscess Date of procedure: 09/16/17 Procedure: Drainage of Large complex pilonidal abscess With application of small VAC dressing Defect measured 9 x 5 cm Anesthesia: JUVE Surgeon: Josh Lofton MD Pathology: other (Complex pilonidal) Operation and Findings: Patient taken the operating room placed in supine position after endotracheal anesthesia he was placed in the prone position Gluteal cheeks are then using silk tape. A complex pilonidal sinus is visualized with abscess coursing to the left side of the gluteal region. After prepping and draping and timeout is done He is already on antibiotics The pilonidal is probed and it connects to the small incision that was made on the left gluteal region medially. The cavity is quite extensive. We simply able make a elliptical incision to excise the pilonidal sinus and the excision that had been done previously. The area is full of clot and purulent material which is irrigated out copiously. All necrotic tissue and abscess is removed by sharp dissection using sharp scissors knives and scalpels. After utilizing the sharp instruments of scalpel scissors and knives we irrigated copiously hemostasis assured with the electrocautery device. Because of the extensive nature of the inflammation a small VAC is then placed in the opening that measures approximately 9 x 4.9 x 5 cm. I did anesthetize the area circumferentially with 1/4% Marcaine solution. The VAC device is applied at 125 mmHg and secured in the typical fashion The patient will be planned returning to the operating room for a VAC change early next week Documented By: Josh Lofton MD 09/16/17 0135 Assessment and Plan - Plan POD #1 I&D infected pilonidal cyst with VAC placement Return to OR Wednesday for VAC change/possible dressing placement Discussed Condition With: Patient Nurse - Attending Attestation I attest that I had a [id number] encounter with the patient on the same day, and personally performed and documented my assessment and findings in the medical record. The following services were provided during this hospital visit: Chart data review, vital sign assessments/reviewing monitor data Review of consultation notes if present Medication orders/review and/or management Ordering and/or reviewing lab tests Ordering and/or interpreting/reviewing x-rays and/or diagnostic studies Care of the patient and discussion of the patient with the care team Documentation time To help prompt me to consider important information that might be impacting today's encounter and assessment, Information from prior notes written by myself or my colleagues may have been "brought forward/copy and pasted" into today's note.
[2017-09-19] MEDS: Piperacil/Tazo 4.5 GM Premix 4.5 GM/100 ML BAG IV.SIG SCH ×4 (03:00→21:50)
[2017-09-19] MEDS: Vancomycin Inj 2,000 MG in Sodium Chlor 0.9% Inj 500 ML IV.SIG SCH ×4 (11:56→23:41)
[2017-09-19] MEDS: Enoxaparin Inj 40 MG/0.4 ML Syringe SQ SCH (11:57)
--- NOTE | 2017-09-19 12:12 | P.PNIM ---
Subjective Interval history: Wound VAC change and repeat examination of the wound pending for early this week. Patient's pain is under control. Decreasing output wound VAC. No new complaints from the patient. Physical Exam Vital signs: Vital Signs 09/18/17 16:00 09/18/17 20:00 09/19/17 00:00 Temperature 98.1 F 98 F 98.6 F Pulse Rate 79 85 72 Respiratory Rate 20 18 18 Blood Pressure 140/72 122/55 L 104/57 L Pulse Oximetry 98 95 98 09/19/17 04:00 09/19/17 08:00 Temperature 97.9 F 98 F Pulse Rate 62 67 Respiratory Rate 18 20 Blood Pressure 101/56 L 137/81 Pulse Oximetry 97 99 Intake & Output 09/18/17 09/19/17 09/19/17 18:59 06:59 18:59 Intake Total 2300 / 2300 1040 / 1040 640 / 640 Output Total 1000 / 1000 Balance 1300 / 1300 1040 / 1040 640 / 640 Weight 115.5 kg Intake: IV 1740 / 1740 200 / 200 640 / 640 NS Inj 1,000 ML @ 100 mls/hr IV 1000 / 1000 .CONT .Q10H CLAUDY Rx#:[id number] Zosyn 4.5 GM Premix 4.5 gm In 200 / 200 200 / 200 100 / 100 100 ml @ 200 mls/hr IV.SIG Q6H CLAUDY Rx#:[id number] Vancomycin Inj 2,000 MG In NS 540 / 540 540 / 540 Inj 500 ML @ 258.75 mls/hr IV. SIG Q12H CLAUDY Rx#:[id number] Oral 560 / 560 840 / 840 Output: Urine 1000 / 1000 Other: Mode Setting Buttocks Continuous Continuous Continuous # Voids 2 Narrative: GENERAL: NAD, A&Ox3 HEAD: Normocephalic. NECK: Supple, trachea midline. No lymphadenopathy. EYES: No scleral icterus. No injection or drainage. CARDIOVASCULAR: Regular rate and rhythm without murmurs, gallops, or rubs. RESPIRATORY: Breath sounds equal bilaterally. No accessory muscle use. GASTROINTESTINAL: Abdomen soft, non-tender, nondistended. MUSCULOSKELETAL: No cyanosis, or edema. Wound VAC in place at buttocks wound. SKIN: Warm and dry. Wound at Buttocks, with wound vac. NEURO: No focal neurological deficits. Results - Labs CBC & Chem 7: 09/18/17 06:00 09/18/17 06:00 Microbiology 09/15/17 20:55 Blood - Peripheral Aerobic Blood Culture - Preliminary No growth in 4 days 09/15/17 20:55 Blood - Peripheral Anaerobic Blood Culture - Preliminary No growth in 4 days 09/15/17 21:00 Blood - Peripheral Aerobic Blood Culture - Preliminary No growth in 4 days 09/15/17 21:00 Blood - Peripheral Anaerobic Blood Culture - Preliminary No growth in 4 days - Procedures Left buttocks abscess incision and drainage by the emergency room on September 15 (1) Sacrococcygeal pilonidal cyst with abscess (2) Pilonidal cyst with abscess (3) Abscess and cellulitis of gluteal region (4) Sepsis - Postoperative Diagnosis (1) S/P surgical removal of pilonidal cyst (2) Pilonidal cyst with abscess (3) Sacrococcygeal pilonidal cyst with abscess Date of procedure: 09/16/17 Procedure: Drainage of Large complex pilonidal abscess With application of small VAC dressing Defect measured 9 x 5 cm Anesthesia: JUVE Surgeon: Josh Lofton MD Pathology: other (Complex pilonidal) Operation and Findings: Patient taken the operating room placed in supine position after endotracheal anesthesia he was placed in the prone position Gluteal cheeks are then using silk tape. A complex pilonidal sinus is visualized with abscess coursing to the left side of the gluteal region. After prepping and draping and timeout is done He is already on antibiotics The pilonidal is probed and it connects to the small incision that was made on the left gluteal region medially. The cavity is quite extensive. We simply able make a elliptical incision to excise the pilonidal sinus and the excision that had been done previously. The area is full of clot and purulent material which is irrigated out copiously. All necrotic tissue and abscess is removed by sharp dissection using sharp scissors knives and scalpels. After utilizing the sharp instruments of scalpel scissors and knives we irrigated copiously hemostasis assured with the electrocautery device. Because of the extensive nature of the inflammation a small VAC is then placed in the opening that measures approximately 9 x 4.9 x 5 cm. I did anesthetize the area circumferentially with 1/4% Marcaine solution. The VAC device is applied at 125 mmHg and secured in the typical fashion The patient will be planned returning to the operating room for a VAC change early next week Documented By: Josh Lofton MD 09/16/17 2274 Assessment and Plan - Plan 26-year-old male admitted secondary to gluteal abscess with outpatient treatment failure on Bactrim Plan for repeat evaluation and wound VAC change early this week. Continue wound VAC for now. Continue monitoring vital signs. Continue antibiotics. Follow cultures. Sepsis Resolved Left gluteal abscess Pilonidal cyst Outpatient treatment failure (Bactrim) Status post drainage on 09/16/[address] Surgeon following Follow cultures Continue vancomycin Continue Zosyn Continue wound care Continue pain treatments Nicotine dependence Cessation recommended DVT prophylaxis Lovenox Discharge Planning: Pending improvement of the abscess and identification of the species in the abscess
--- NOTE | 2017-09-19 13:27 | P.PNGS ---
Subjective Patient reports: feels better, pain is less Interval history: DAILY PROGRESS NOTE FOR SURGICAL ATTENDING, DR. LINA DAN Physical Exam Vital signs: Vital Signs 09/19/17 04:00 09/19/17 08:00 09/19/17 12:00 Temperature 97.9 F 98 F 98.2 F Pulse Rate 62 67 77 Respiratory Rate 18 20 20 Blood Pressure 101/56 L 137/81 137/66 Pulse Oximetry 97 99 95 Intake & Output 09/18/17 09/19/17 09/19/17 18:59 06:59 18:59 Intake Total 2300 / 2300 1040 / 1040 640 / 640 Output Total 1000 / 1000 Balance 1300 / 1300 1040 / 1040 640 / 640 Weight 115.5 kg Intake: IV 1740 / 1740 200 / 200 640 / 640 NS Inj 1,000 ML @ 100 mls/hr IV 1000 / 1000 .CONT .Q10H CLAUDY Rx#:[id number] Zosyn 4.5 GM Premix 4.5 gm In 200 / 200 200 / 200 100 / 100 100 ml @ 200 mls/hr IV.SIG Q6H CLAUDY Rx#:[id number] Vancomycin Inj 2,000 MG In NS 540 / 540 540 / 540 Inj 500 ML @ 258.75 mls/hr IV. SIG Q12H CLAUDY Rx#:[id number] Oral 560 / 560 840 / 840 Output: Urine 1000 / 1000 Other: Mode Setting Buttocks Continuous Continuous Continuous # Voids 2 - Additional findings Additional findings: Patient has no complaints Alert and oriented Appears comfortable Tolerating diet VAC in place decreased drainage ITS Impressions Abdomen/Pelvis CT 09/15/17 20:40 CONCLUSION: 1. Abscess in the gluteal region between the gluteus ivon musculature posterior to the coccyx measuring up to 7.6 x 4 cm. No extension into the ischiorectal fossae identified. Cellulitis extends to the anal verge. 2. No acute findings within the abdomen and pelvis. Laboratory Last Values WBC 13.2 th/mm3 (4.0-11.0) H 09/18/17 06:00 RBC 4.07 mil/mm3 (4.50-5.90) L 09/18/17 06:00 Hgb 11.8 gm/dL (13.0-17.0) L 09/18/17 06:00 Hct 36.0 % (39.0-51.0) L 09/18/17 06:00 MCV 88.4 fL (80.0-100.0) 09/18/17 06:00 MCH 28.9 pg (27.0-34.0) 09/18/17 06:00 MCHC 32.7 % (32.0-36.0) 09/18/17 06:00 RDW 13.9 % (11.6-17.2) 09/18/17 06:00 Plt Count 369 th/mm3 (150-450) 09/18/17 06:00 MPV 7.5 fL (7.0-11.0) 09/18/17 06:00 Neut % (Auto) 62.9 % (16.0-70.0) 09/18/17 06:00 Lymph % (Auto) 27.6 % (9.0-44.0) 09/18/17 06:00 [place] % (Auto) 7.6 % (0.0-8.0) 09/18/17 06:00 Eos % (Auto) 1.4 % (0.0-4.0) 09/18/17 06:00 Baso % (Auto) 0.5 % (0.0-2.0) 09/18/17 06:00 Neut # (Auto) 8.3 th/mm3 (1.8-7.7) H 09/18/17 06:00 Lymph # (Auto) 3.6 th/mm3 (1.0-4.8) 09/18/17 06:00 [place] # (Auto) 1.0 th/mm3 (0.0-0.9) H 09/18/17 06:00 Eos # (Auto) 0.2 th/mm3 (0.0-0.4) 09/18/17 06:00 Baso # (Auto) 0.1 th/mm3 (0.0-0.2) 09/18/17 06:00 WBC Differential . 09/18/17 06:00 Differential Comment Auto diff final 09/18/17 06:00 Sodium 143 meq/L (136-145) 09/18/17 06:00 Potassium 4.0 meq/L (3.5-5.1) 09/18/17 06:00 Chloride 110 meq/L (98-107) H 09/18/17 06:00 Carbon Dioxide 23.6 meq/L (21.0-32.0) 09/18/17 06:00 Anion Gap 9 meq/L (5-15) 09/18/17 06:00 BUN 8 mg/dL (7-18) 09/18/17 06:00 Creatinine 0.80 mg/dL (0.60-1.30) 09/18/17 06:00 Estimated GFR Greater than 89 mL/min (>89) 09/18/17 06:00 Random Glucose 87 mg/dL (74-106) 09/18/17 06:00 Hemoglobin A1c 5.9 % (4.3-6.0) 09/17/17 07:15 Lactic Acid 1.6 mmol/L (0.4-2.0) 09/15/17 21:00 Calcium 8.0 mg/dL (8.5-10.1) L 09/18/17 06:00 Phosphorus 3.3 mg/dL (2.5-4.9) 09/18/17 06:00 Magnesium 2.1 mg/dL (1.5-2.5) 09/18/17 06:00 Total Bilirubin 0.2 mg/dL (0.2-1.0) 09/18/17 06:00 AST 18 U/L (15-37) 09/18/17 06:00 ALT 20 U/L (12-78) 09/18/17 06:00 Alkaline Phosphatase 65 U/L (45-117) 09/18/17 06:00 Total Protein 6.4 g/dL (6.4-8.2) D 09/18/17 06:00 Albumin 2.3 g/dL (3.4-5.0) L 09/18/17 06:00 TSH 0.227 uIU/mL (0.358-3.740) L 09/17/17 07:15 Free T4 1.37 ng/dL (0.76-1.46) 09/17/17 07:15 Vancomycin Trough 9.3 mcg/mL (5.0-10.0) 09/17/17 15:00 Microbiology 09/15/17 20:55 Aerobic Blood Culture - Preliminary Blood - Peripheral No growth in 4 days Anaerobic Blood Culture - Preliminary No growth in 4 days 09/15/17 21:00 Aerobic Blood Culture - Preliminary Blood - Peripheral No growth in 4 days Anaerobic Blood Culture - Preliminary No growth in 4 days 09/15/17 22:30 Gram Stain - Final Abscess - Buttock Wound Culture - Final Assessment and Plan - Assessment (1) Pilonidal cyst with abscess Code(s): L05.01 - Pilonidal cyst with abscess Status: Acute (2) Sacrococcygeal pilonidal cyst with abscess Code(s): L05.01 - Pilonidal cyst with abscess Status: Acute (3) S/P surgical removal of pilonidal cyst Code(s): Z98.890 - Other specified postprocedural states Status: Acute - Plan Discussed with the patient about removing back tomorrow morning and replacing with VAC Tentatively be scheduled for 7:30 AM - Attending Attestation NOTE FOR SURGICAL ATTENDING, DR. LINA DAN I attest that I had a [id number] encounter with the patient on the same day, and personally performed and documented my assessment and findings in the medical record. The following services were provided during this hospital visit: Chart data review, vital sign assessments/reviewing monitor data Review of consultations notes if present. Medication orders/review and/or management Ordering and/or reviewing lab tests Ordering and/or interpreting/reviewing x-rays and/or diagnostic studies Care of the patient and discussion of the patient with the care team Documentation time To help prompt me to consider important information that might be impacting today's encounter and assessment, Information from prior notes written by myself or my colleagues may have been "brought forward/copy and pasted" into today's note.
[2017-09-19] MEDS ORDERED: Pharmacy Ordered Lab Info OTHER ONE (23:45)
[2017-09-20] MEDS: Piperacil/Tazo 4.5 GM Premix 4.5 GM/100 ML BAG IV.SIG SCH ×2 (02:14→09:36)
[2017-09-20] MEDS ORDERED: Chlorhexidine Gluconate 2% 1 Pack (2 Cloths) TOPICAL SCH (02:45)
[2017-09-20] MEDS ORDERED: Metoprolol Tartrate 25 MG Tablet PO SCH (02:45)
[2017-09-20] MEDS ORDERED: Sodium Chlor 0.9% Inj 500 ML IV.SIG SCH (03:00)
[2017-09-20 05:53] LABS: Glomerular Filtration Rate Greater Than 89 mL/min (>89)
[2017-09-20] MEDS ORDERED: Sugammadex Inj 200 MG/2 ML Vial IV.PUSH ONE (08:00)
--- NOTE | 2017-09-20 08:45 | P.OP ---
- Preoperative Diagnosis (1) Pilonidal cyst with abscess (2) Sacrococcygeal pilonidal cyst with abscess (3) S/P surgical removal of pilonidal cyst - Postoperative Diagnosis (1) Abscess and cellulitis of gluteal region (2) Pilonidal cyst with abscess (3) Sacrococcygeal pilonidal cyst with abscess (4) S/P surgical removal of pilonidal cyst Date of procedure: 09/20/17 Procedure: Removal of old VAC Debridement of abscess cavity Replacement of VAC dressing appliance Patient was taken to the operating room placed in supine position After he was placed under anesthesia is placed in the prone position VAC dressing was removed Area was prepped and draped with Betadine Timeout was performed A new VAC dressing is applied after debridement of the base of the wound which measured 8 x 5 cm some necrotic tissue was removed small oozing healthy tissue was cauterized. We then irrigated sharply debrided some other necrotic tissue. This was done with sharp knives and scissors near The small VAC appliance was then applied and sealed in place under 125 mm of pressure Patient returned to the recovery room stable Anticipate dressing change of the bedside on Wednesday with possible discharge and home health Anesthesia: JUVE Surgeon: Josh Lofton MD Pathology: none sent
[2017-09-20] MEDS: Enoxaparin Inj 40 MG/0.4 ML Syringe SQ SCH (09:38)
[2017-09-20] MEDS ORDERED: fentaNYL Citrate Inj 100 MCG/2 ML Ampul ONE (09:47)
[2017-09-20] MEDS ORDERED: Lidocaine PF 1% Inj 5 ML Syringe INFILTRATN ONE (11:23)
[2017-09-20] MEDS ORDERED: SODIUM CHLOR 0.9% IV.SIG SCH (12:00)
[2017-09-20] MEDS ORDERED: VANCOMYCIN IV.SIG SCH (12:00)
--- NOTE | 2017-09-20 13:18 | P.PNIM ---
Subjective Interval history: Wound VAC change today. Plan for repeat wound VAC change in 2 days and possible removal of wound VAC at that time. No new complaints from the patient. Cultures are finalized without growing a specific pathogen. Physical Exam Vital signs: Vital Signs 09/19/17 16:00 09/19/17 20:00 09/20/17 00:00 Temperature 98.2 F 98.2 F 98.1 F Pulse Rate 68 72 69 Respiratory Rate 20 16 20 Blood Pressure 100/56 L 153/94 H 134/80 Pulse Oximetry 99 90 L 92 L 09/20/17 04:00 09/20/17 08:15 09/20/17 08:30 Temperature 97.9 F 96.8 F L Pulse Rate 58 L 70 67 Respiratory Rate 18 14 14 Blood Pressure 117/76 142/94 H 141/90 H Pulse Oximetry 95 98 98 09/20/17 08:45 09/20/17 09:00 Temperature 98.1 F Pulse Rate 68 87 Respiratory Rate 14 14 Blood Pressure 129/80 120/77 Pulse Oximetry 97 96 Intake & Output 09/19/17 09/20/17 09/20/17 18:59 06:59 18:59 Intake Total 1999 1460 / 1460 1643 / 1643 Output Total 1000 / 1000 5 / 5 Balance 1000 / 1000 1460 / 1460 1638 / 1638 Weight 114.2 kg Intake: IV 1280 / 1280 740 / 740 643 / 643 Zosyn 4.5 GM Premix 4.5 gm In 200 / 200 200 / 200 100 / 100 100 ml @ 200 mls/hr IV.SIG Q6H CLAUDY Rx#:[id number] Vancomycin Inj 2,150 MG In NS 1080 / 1080 540 / 540 543 / 543 Inj 500 ML @ 258.75 mls/hr IV. SIG Q12H CLAUDY Rx#:[id number] Oral 720 / 720 720 / 720 Anesthesia Amount 1000 / 1000 Output: Urine 1000 / 1000 Estimated Blood Loss 5 / 5 Other: Mode Setting Buttocks Continuous Continuous Continuous # Voids 3 Narrative: GENERAL: NAD, A&Ox3 HEAD: Normocephalic. NECK: Supple, trachea midline. No lymphadenopathy. EYES: No scleral icterus. No injection or drainage. CARDIOVASCULAR: Regular rate and rhythm without murmurs, gallops, or rubs. RESPIRATORY: Breath sounds equal bilaterally. No accessory muscle use. GASTROINTESTINAL: Abdomen soft, non-tender, nondistended. MUSCULOSKELETAL: No cyanosis, or edema. Wound VAC in place at buttocks wound. SKIN: Warm and dry. Wound at Buttocks, with wound vac. NEURO: No focal neurological deficits. Results - Labs CBC & Chem 7: 09/18/17 06:00 09/20/17 04:43 Laboratory Results - last 24 hr 09/19/17 09/20/17 23:40 04:43 Creatinine 1.06 Estimated GFR Greater than 89 Vancomycin Trough 13.0 H Microbiology 09/15/17 20:55 Blood - Peripheral Aerobic Blood Culture - Final No growth in 5 days 09/15/17 20:55 Blood - Peripheral Anaerobic Blood Culture - Final No growth in 5 days 09/15/17 21:00 Blood - Peripheral Aerobic Blood Culture - Final No growth in 5 days 09/15/17 21:00 Blood - Peripheral Anaerobic Blood Culture - Final No growth in 5 days - Procedures Left buttocks abscess incision and drainage by the emergency room on September 15 (1) Sacrococcygeal pilonidal cyst with abscess (2) Pilonidal cyst with abscess (3) Abscess and cellulitis of gluteal region (4) Sepsis - Postoperative Diagnosis (1) S/P surgical removal of pilonidal cyst (2) Pilonidal cyst with abscess (3) Sacrococcygeal pilonidal cyst with abscess Date of procedure: 09/16/17 Procedure: Drainage of Large complex pilonidal abscess With application of small VAC dressing Defect measured 9 x 5 cm Anesthesia: [facility] Surgeon: Josh Lofton MD Pathology: other (Complex pilonidal) Operation and Findings: Patient taken the operating room placed in supine position after endotracheal anesthesia he was placed in the prone position Gluteal cheeks are then using silk tape. A complex pilonidal sinus is visualized with abscess coursing to the left side of the gluteal region. After prepping and draping and timeout is done He is already on antibiotics The pilonidal is probed and it connects to the small incision that was made on the left gluteal region medially. The cavity is quite extensive. We simply able make a elliptical incision to excise the pilonidal sinus and the excision that had been done previously. The area is full of clot and purulent material which is irrigated out copiously. All necrotic tissue and abscess is removed by sharp dissection using sharp scissors knives and scalpels. After utilizing the sharp instruments of scalpel scissors and knives we irrigated copiously hemostasis assured with the electrocautery device. Because of the extensive nature of the inflammation a small VAC is then placed in the opening that measures approximately 9 x 4.9 x 5 cm. I did anesthetize the area circumferentially with 1/4% Marcaine solution. The VAC device is applied at 125 mmHg and secured in the typical fashion The patient will be planned returning to the operating room for a VAC change early next week Documented By: Josh Lofton MD 09/16/17 4445 Assessment and Plan - Plan 26-year-old male admitted secondary to gluteal abscess with outpatient treatment failure on Bactrim Wound VAC change and possible transition to dressing without wound VAC, and 2 days. Transition to p.o. antibiotics today. Continue wound VAC for now. Continue monitoring vital signs. Continue antibiotics. Follow cultures. Sepsis Resolved Left gluteal abscess Pilonidal cyst Outpatient treatment failure (Bactrim) Status post drainage on 09/16/[address] Surgeon following Follow cultures Continue vancomycin Continue Zosyn Continue wound care Continue pain treatments Nicotine dependence Cessation recommended DVT prophylaxis Lovenox Discharge Planning: Pending improvement of the abscess and identification of the species in the abscess
[2017-09-21 07:35] LABS: Glomerular Filtration Rate Greater Than 89 mL/min (>89)
[2017-09-21] MEDS: Enoxaparin Inj 40 MG/0.4 ML Syringe SQ SCH (08:56)
--- NOTE | 2017-09-21 10:32 | P.PNGS ---
<JackieAshly - Last Filed: 09/21/17 10:29> Subjective Interval history: No issues; no pain; two daughters are visiting Physical Exam Vital signs: Vital Signs 09/20/17 12:00 09/20/17 15:45 09/20/17 20:00 Temperature 98.1 F 98.2 F 98.4 F Pulse Rate 86 76 65 Respiratory Rate 18 18 18 Blood Pressure 137/79 109/58 L 129/55 L Pulse Oximetry 99 98 99 09/21/17 00:00 09/21/17 04:00 09/21/17 08:00 Temperature 98.3 F 97.9 F 98.2 F Pulse Rate 67 83 77 Respiratory Rate 18 18 19 Blood Pressure 108/55 L 100/70 133/88 Pulse Oximetry 98 97 98 Intake & Output 09/20/17 09/21/17 09/21/17 18:59 06:59 18:59 Intake Total 2603 / 2603 840 / 840 Output Total 755 / 755 1825 / 1825 Balance 1848 / 1848 -985 / -985 Weight 116.4 kg Intake: IV 643 / 643 Zosyn 4.5 GM Premix 4.5 gm In 100 / 100 100 ml @ 200 mls/hr IV.SIG Q6H CLAUDY Rx#:[id number] Vancomycin Inj 2,150 MG In NS 543 / 543 Inj 500 ML @ 258.75 mls/hr IV. SIG Q12H CLAUDY Rx#:[id number] Oral 960 / 960 840 / 840 Anesthesia Amount 1000 / 1000 Output: Urine 750 / 750 1825 / 1825 Estimated Blood Loss 5 / 5 Other: Mode Setting Buttocks Continuous Continuous Continuous # Bowel Movements 0 Narrative: Alert and awake Cardio: RRR Resp: CTAB Abd: soft non tender Gluteal wound vac in place with good seal; minimal dark drainage in canister Assessment and Plan - Plan 26-year-old male with bilateral gluteal abscesses; POD1 wound vac change -Plan to remove Wound Vac at bedside tomorrow -Will evaluate and likely transition to wet to dry dressings if appropriate -Continue antibiotics <Josh Dan - Last Filed: 09/21/17 12:13> Subjective Interval history: DAILY PROGRESS NOTE FOR SURGICAL ATTENDING, DR. JOSH DAN Physical Exam Vital signs: Vital Signs 09/20/17 15:45 09/20/17 20:00 09/21/17 00:00 Temperature 98.2 F 98.4 F 98.3 F Pulse Rate 76 65 67 Respiratory Rate 18 18 18 Blood Pressure 109/58 L 129/55 L 108/55 L Pulse Oximetry 98 99 98 09/21/17 04:00 09/21/17 08:00 Temperature 97.9 F 98.2 F Pulse Rate 83 77 Respiratory Rate 18 19 Blood Pressure 100/70 133/88 Pulse Oximetry 97 98 Intake & Output 09/20/17 09/21/17 09/21/17 18:59 06:59 18:59 Intake Total 2603 / 2603 840 / 840 Output Total 755 / 755 1825 / 1825 Balance 1848 / 1848 -985 / -985 Weight 116.4 kg Intake: IV 643 / 643 Zosyn 4.5 GM Premix 4.5 gm In 100 / 100 100 ml @ 200 mls/hr IV.SIG Q6H CLAUDY Rx#:[id number] Vancomycin Inj 2,150 MG In NS 543 / 543 Inj 500 ML @ 258.75 mls/hr IV. SIG Q12H CLAUDY Rx#:[id number] Oral 960 / 960 840 / 840 Anesthesia Amount 1000 / 1000 Output: Urine 750 / 750 1825 / 1825 Estimated Blood Loss 5 / 5 Other: Mode Setting Buttocks Continuous Continuous Continuous # Bowel Movements 0 Assessment and Plan - Attending Attestation NOTE FOR SURGICAL ATTENDING, DR. JOSH DAN I agree with above assessment and plan. The exam, history, and the medical decision-making described in the above note were completed with the assistance of the mid-level provider. I reviewed and agree with the findings presented. The following services were provided during this hospital visit: Chart data review, vital sign assessments/reviewing monitor data Review of consultations notes if present. Medication orders/review and/or management Ordering and/or reviewing lab tests Ordering and/or interpreting/reviewing x-rays and/or diagnostic studies Care of the patient and discussion of the patient with the care team Documentation time To help prompt me to consider important information that might be impacting today's encounter and assessment, Information from prior notes written by myself or my colleagues may have been "brought forward/copy and pasted" into today's note.
--- NOTE | 2017-09-21 11:43 | P.PNIM ---
Subjective Interval history: Patient is doing well today. No stomach upset from transition to p.o. antibiotics. Thus far p.o. antibiotics. Be continued to treat patient's infection well. Medically patient is doing well for discharge. Possible discharge tomorrow if cleared by surgery. Physical Exam Vital signs: Vital Signs 09/20/17 12:00 09/20/17 15:45 09/20/17 20:00 Temperature 98.1 F 98.2 F 98.4 F Pulse Rate 86 76 65 Respiratory Rate 18 18 Blood Pressure 137/79 109/58 L 129/55 L Pulse Oximetry 99 98 99 09/21/17 00:00 09/21/17 04:00 09/21/17 08:00 Temperature 98.3 F 97.9 F 98.2 F Pulse Rate 67 83 77 Respiratory Rate 18 18 19 Blood Pressure 108/55 L 100/70 133/88 Pulse Oximetry 98 97 98 Intake & Output 09/20/17 09/21/17 09/21/17 18:59 06:59 18:59 Intake Total 2603 / 2603 840 / 840 Output Total 755 / 755 1825 / 1825 Balance 1848 / 1848 -985 / -985 Weight 116.4 kg Intake: IV 643 / 643 Zosyn 4.5 GM Premix 4.5 gm In 100 / 100 100 ml @ 200 mls/hr IV.SIG Q6H CLAUDY Rx#:[id number] Vancomycin Inj 2,150 MG In NS 543 / 543 Inj 500 ML @ 258.75 mls/hr IV. SIG Q12H CLAUDY Rx#:[id number] Oral 960 / 960 840 / 840 Anesthesia Amount 1000 / 1000 Output: Urine 750 / 750 1825 / 1825 Estimated Blood Loss 5 / 5 Other: Mode Setting Buttocks Continuous Continuous Continuous # Bowel Movements 0 Narrative: GENERAL: NAD, A&Ox3 HEAD: Normocephalic. NECK: Supple, trachea midline. No lymphadenopathy. EYES: No scleral icterus. No injection or drainage. CARDIOVASCULAR: Regular rate and rhythm without murmurs, gallops, or rubs. RESPIRATORY: Breath sounds equal bilaterally. No accessory muscle use. GASTROINTESTINAL: Abdomen soft, non-tender, nondistended. MUSCULOSKELETAL: No cyanosis, or edema. Buttocks wound VAC in place. SKIN: Warm and dry. NEURO: No focal neurological deficits. Results - Labs CBC & Chem 7: 09/18/17 06:00 09/21/17 06:36 Laboratory Results - last 24 hr 09/21/17 06:36 Creatinine 0.90 Estimated GFR Greater than 89 Microbiology 09/15/17 20:55 Blood - Peripheral Aerobic Blood Culture - Final No growth in 5 days 09/15/17 20:55 Blood - Peripheral Anaerobic Blood Culture - Final No growth in 5 days 09/15/17 21:00 Blood - Peripheral Aerobic Blood Culture - Final No growth in 5 days 09/15/17 21:00 Blood - Peripheral Anaerobic Blood Culture - Final No growth in 5 days - Procedures Left buttocks abscess incision and drainage by the emergency room on September 15 (1) Sacrococcygeal pilonidal cyst with abscess (2) Pilonidal cyst with abscess (3) Abscess and cellulitis of gluteal region (4) Sepsis - Postoperative Diagnosis (1) S/P surgical removal of pilonidal cyst (2) Pilonidal cyst with abscess (3) Sacrococcygeal pilonidal cyst with abscess Date of procedure: 09/16/17 Procedure: Drainage of Large complex pilonidal abscess With application of small VAC dressing Defect measured 9 x 5 cm Anesthesia: JUVE Surgeon: Josh Lofton MD Pathology: other (Complex pilonidal) Operation and Findings: Patient taken the operating room placed in supine position after endotracheal anesthesia he was placed in the prone position Gluteal cheeks are then using silk tape. A complex pilonidal sinus is visualized with abscess coursing to the left side of the gluteal region. After prepping and draping and timeout is done He is already on antibiotics The pilonidal is probed and it connects to the small incision that was made on the left gluteal region medially. The cavity is quite extensive. We simply able make a elliptical incision to excise the pilonidal sinus and the excision that had been done previously. The area is full of clot and purulent material which is irrigated out copiously. All necrotic tissue and abscess is removed by sharp dissection using sharp scissors knives and scalpels. After utilizing the sharp instruments of scalpel scissors and knives we irrigated copiously hemostasis assured with the electrocautery device. Because of the extensive nature of the inflammation a small VAC is then placed in the opening that measures approximately 9 x 4.9 x 5 cm. I did anesthetize the area circumferentially with 1/4% Marcaine solution. The VAC device is applied at 125 mmHg and secured in the typical fashion The patient will be planned returning to the operating room for a VAC change early next week Documented By: Josh Lofton MD 09/16/17 1267 Assessment and Plan - Plan 26-year-old male admitted secondary to gluteal abscess with outpatient treatment failure on Bactrim Wound VAC change tomorrow. Possible transition to topical dressings at that time with removal wound VAC. Possible discharge tomorrow if cleared by surgery. Sepsis Resolved Left gluteal abscess Pilonidal cyst Outpatient treatment failure Status post drainage on 09/16/[address] Surgeon following Follow cultures Continue Bactrim Continue Keflex Continue wound care Continue pain treatments Nicotine dependence Cessation recommended DVT prophylaxis Lovenox Discharge Planning: Discharge pending surgical clearance
[2017-09-21] MEDS ORDERED: Pharmacy Ordered Lab Info OTHER ONE (11:45)
[2017-09-21 18:46] VITALS: RESP 18
[2017-09-22 05:23] VITALS: BP 109/73; PULSE 78; TEMP 98.1; O2SAT 99
[2017-09-22 07:20] LABS: Baso # (Auto) 0.1 th/mm3 (0.0-0.2); Baso % (Auto) 0.5 % (0.0-2.0); Eos # (Auto) 0.3 th/mm3 (0.0-0.4); Hematocrit 39.6 % (39.0-51.0); Hemoglobin 13.2 gm/dL (13.0-17.0); Lymph % (Auto) 25.8 % (9.0-44.0); Mean Corpuscular HGB Conc 33.3 % (32.0-36.0); Mean Corpuscular Hemoglobin 29.1 pg (27.0-34.0); Mean Corpuscular Volume 87.4 fL (80.0-100.0); Mean Platelet Volume 6.9 fL (7.0-11.0); Mono # (Auto) 0.9 th/mm3 (0.0-0.9); Mono % (Auto) 7.5 % (0.0-8.0); Neut # (Auto) 7.3 th/mm3 (1.8-7.7); Neut % (Auto) 63.2 % (16.0-70.0); Platelet Count 490 th/mm3 (150-450); Red Blood Count 4.54 mil/mm3 (4.50-5.90); Red Cell Distribution Width 14.2 % (11.6-17.2); White Blood Count 11.5 th/mm3 (4.0-11.0)
[2017-09-22 07:53] LABS: Alanine Aminotransferase 26 U/L (12-78); Albumin 3.2 g/dL (3.4-5.0); Anion Gap 7 meq/L (5-15); Aspartate Aminotransferase 14 U/L (15-37); Blood Urea Nitrogen 12 mg/dL (7-18); Calcium 8.8 mg/dL (8.5-10.1); Carbon Dioxide 26.6 meq/L (21.0-32.0); Chloride 105 meq/L (98-107); Glomerular Filtration Rate Greater Than 89 mL/min (>89); Glucose,Random 89 mg/dL (74-106); Potassium 4.2 meq/L (3.5-5.1); Sodium 139 meq/L (136-145)
[2017-09-22 07:56] LABS: Alkaline Phosphatase 95 U/L (45-117); Total Protein 7.6 g/dL (6.4-8.2)
--- NOTE | 2017-09-22 08:19 | P.PNGS ---
<Ashly Mejia - Last Filed: 09/22/17 08:15> Subjective Interval history: resting in be; eager to get home today Physical Exam Vital signs: Vital Signs 09/21/17 16:00 09/21/17 20:00 09/22/17 00:00 Temperature 98.0 F 98.2 F 98.4 F Pulse Rate 73 75 74 Respiratory Rate 18 18 18 Blood Pressure 114/55 L 117/66 120/66 Pulse Oximetry 100 100 98 09/22/17 04:00 Temperature 98.1 F Pulse Rate 78 Respiratory Rate 18 Blood Pressure 109/73 Pulse Oximetry 99 Intake & Output 09/21/17 09/22/17 09/22/17 18:59 06:59 18:59 Intake Total 560 / 560 240 / 240 Output Total 1400 / 1400 750 / 750 Balance -840 / -840 -510 / -510 Weight 113.4 kg Intake: Oral 560 / 560 240 / 240 Output: Urine 1400 / 1400 750 / 750 Other: Mode Setting Buttocks Continuous # Bowel Movements 2 0 Narrative: Alert and awake Cardio: RRR Resp: CTAB Abd: soft non tender Gluteal wound vac removed---- wound clean and dry; minimal bleeding; 4x4 moist packing placed into wound Assessment and Plan - Plan 26-year-old male with bilateral gluteal abscesses; POD1 wound vac change -Wound vac removed -Transition to wet to dry dressings - clear for DC -Follow up WednesdaySep 28 at 2:50PM -Wound care explained to both patient and ---they both feel comfortable with doing dressing changes <Lina Dan - Last Filed: 09/22/17 08:41> Subjective Interval history: DAILY PROGRESS NOTE FOR SURGICAL ATTENDING, DR. LINA DAN Physical Exam Vital signs: Vital Signs 09/21/17 16:00 09/21/17 20:00 09/22/17 00:00 Temperature 98.0 F 98.2 F 98.4 F Pulse Rate 73 75 74 Respiratory Rate 18 18 18 Blood Pressure 114/55 L 117/66 120/66 Pulse Oximetry 100 100 98 09/22/17 04:00 Temperature 98.1 F Pulse Rate 78 Respiratory Rate 18 Blood Pressure 109/73 Pulse Oximetry 99 Intake & Output 09/21/17 09/22/17 09/22/17 18:59 06:59 18:59 Intake Total 560 / 560 240 / 240 Output Total 1400 / 1400 750 / 750 Balance -840 / -840 -510 / -510 Weight 113.4 kg Intake: Oral 560 / 560 240 / 240 Output: Urine 1400 / 1400 750 / 750 Other: Mode Setting Buttocks Continuous # Bowel Movements 2 0 Assessment and Plan - Attending Attestation NOTE FOR SURGICAL ATTENDING, DR. LINA DAN I agree with above assessment and plan. The exam, history, and the medical decision-making described in the above note were completed with the assistance of the mid-level provider. I reviewed and agree with the findings presented. The following services were provided during this hospital visit: Chart data review, vital sign assessments/reviewing monitor data Review of consultations notes if present. Medication orders/review and/or management Ordering and/or reviewing lab tests Ordering and/or interpreting/reviewing x-rays and/or diagnostic studies Care of the patient and discussion of the patient with the care team Documentation time To help prompt me to consider important information that might be impacting today's encounter and assessment, Information from prior notes written by myself or my colleagues may have been "brought forward/copy and pasted" into today's note.
[2017-09-22] MEDS: Enoxaparin Inj 40 MG/0.4 ML Syringe SQ SCH (08:37)
--- NOTE | 2017-09-22 10:51 | P.DS ---
Date of admission: 09/15/17 22:34 Primary care physician: No Primary Care Physician Brief History from admission: 36-year-old male who presents with one-week history of aggressively worsening constant sharp nonradiating over the right buttock. Patient visited the ER on , was prescribed a course of Bactrim which she has been taking. Unfortunately, the pain has continued to worsen and swelling has worsened as well. Patient denies any chest pain, shortness of breath, nausea, vomiting, fevers, chills. Patient had incision and drainage performed in the ER, now reports pain has much improved. DS: Medications - Discharge Medications Prescriptions: cephalexin 500 mg PO Q8HR 7 Days #21 cap hydrocodone-acetaminophen 1 tab PO Q6HR PRN #12 tab PRN Reason: Pain Scale 3 To 10 sulfamethoxazole-trimethoprim 1 tab PO Q12HR 7 Days #14 tab DS: Summary Hospital Course: Mr. Yang is a 26-year-old male. She is admitted secondary to a gluteal abscess. He has a previous history gluteal abscess in the same area. Bactrim had failed as an outpatient therapy, likely secondary to abscess formation. Cultures were obtained but no cultures resulted on microbiology. Patient has been improving and has also continued to improve with transition to p.o. Keflex and Bactrim. Wound VAC was placed after incision and drainage but today the wound VAC has been removed and dressing packings will occur from here forward. Patient medically stable and cleared for discharge home today. - Time Spent with Patient Total time spent providing and/or coordinating discharge services: Less than 30 minutes - Quality: VTE Deep Vein Thrombosis/Pulmonary Embolism Present on Admission: No Exam Vital signs: Vital Signs 09/21/17 16:00 09/21/17 20:00 09/22/17 00:00 Temperature 98.0 F 98.2 F 98.4 F Pulse Rate 73 75 74 Respiratory Rate 18 18 18 Blood Pressure 114/55 L 117/66 120/66 Pulse Oximetry 100 100 98 09/22/17 04:00 Temperature 98.1 F Pulse Rate 78 Respiratory Rate 18 Blood Pressure 109/73 Pulse Oximetry 99 Intake & Output 09/21/17 09/22/17 09/22/17 18:59 06:59 18:59 Intake Total 560 / 560 240 / 240 Output Total 1400 / 1400 750 / 750 Balance -840 / -840 -510 / -510 Weight 113.4 kg Intake: Oral 560 / 560 240 / 240 Output: Urine 1400 / 1400 750 / 750 Other: Mode Setting Buttocks Continuous # Bowel Movements 2 0 Results Procedures completed during hospitalization: Left buttocks abscess incision and drainage by the emergency room on September 15 (1) Sacrococcygeal pilonidal cyst with abscess (2) Pilonidal cyst with abscess (3) Abscess and cellulitis of gluteal region (4) Sepsis - Postoperative Diagnosis (1) S/P surgical removal of pilonidal cyst (2) Pilonidal cyst with abscess (3) Sacrococcygeal pilonidal cyst with abscess Date of procedure: 09/16/17 Procedure: Drainage of Large complex pilonidal abscess With application of small VAC dressing Defect measured 9 x 5 cm Anesthesia: JUVE Surgeon: Josh Lofton MD Pathology: other (Complex pilonidal) Operation and Findings: Patient taken the operating room placed in supine position after endotracheal anesthesia he was placed in the prone position Gluteal cheeks are then using silk tape. A complex pilonidal sinus is visualized with abscess coursing to the left side of the gluteal region. After prepping and draping and timeout is done He is already on antibiotics The pilonidal is probed and it connects to the small incision that was made on the left gluteal region medially. The cavity is quite extensive. We simply able make a elliptical incision to excise the pilonidal sinus and the excision that had been done previously. The area is full of clot and purulent material which is irrigated out copiously. All necrotic tissue and abscess is removed by sharp dissection using sharp scissors knives and scalpels. After utilizing the sharp instruments of scalpel scissors and knives we irrigated copiously hemostasis assured with the electrocautery device. Because of the extensive nature of the inflammation a small VAC is then placed in the opening that measures approximately 9 x 4.9 x 5 cm. I did anesthetize the area circumferentially with 1/4% Marcaine solution. The VAC device is applied at 125 mmHg and secured in the typical fashion The patient will be planned returning to the operating room for a VAC change early next week Documented By: Josh Lofton MD 09/16/17 1831 Labs on day of discharge: Labs from last 24 hours 09/22/17 09/22/17 06:11 06:11 WBC 11.5 H RBC 4.54 Hgb 13.2 Hct 39.6 MCV 87.4 MCH 29.1 MCHC 33.3 RDW 14.2 Plt Count 490 H D MPV 6.9 L Neut % (Auto) 63.2 Lymph % (Auto) 25.8 [place] % (Auto) 7.5 Eos % (Auto) 3.0 Baso % (Auto) 0.5 Neut # (Auto) 7.3 Lymph # (Auto) 3.0 [place] # (Auto) 0.9 Eos # (Auto) 0.3 Baso # (Auto) 0.1 WBC Differential . Differential Comment Auto diff final Sodium 139 Potassium 4.2 Chloride 105 Carbon Dioxide 26.6 Anion Gap 7 BUN 12 Creatinine 1.00 Estimated GFR Greater than 89 Random Glucose 89 Calcium 8.8 Total Bilirubin 0.2 AST 14 L ALT 26 Alkaline Phosphatase 95 Total Protein 7.6 D Albumin 3.2 L - Impressions ITS Impressions Abdomen/Pelvis CT 09/15/17 20:40 CONCLUSION: 1. Abscess in the gluteal region between the gluteus ivon musculature posterior to the coccyx measuring up to 7.6 x 4 cm. No extension into the ischiorectal fossae identified. Cellulitis extends to the anal verge. 2. No acute findings within the abdomen and pelvis. Discharge Plan - Discharge Disposition Patient Disposition: 01 Discharge Home - Discharge Condition Condition: Good - Discharge Order Discharge Orders: Discharge Order (Routine); Ordered 09/22/17 Ordered By: Cosme Perez General Surgery Clear for Discharge (Routine); Ordered 09/22/17 Ordered By: Ashly Mejia - Discharge Details Anticipated Discharge Date: 09/22/17 - Physicians Team Primary Care Provider: Primary Care Physici,No Attending Provider: Cosme Perez Other Providers: Josh Lofton MD ; Surgeons,[facility]
== END 2017-09-22 11:24 | disposition home or self-care (01) ==
LOC: NEPC 18:40 → NEDA 22:34 → H7ONC 23:10 → N04 09-17 16:56
PROVIDERS: ADMIT Hospitalist; ATTEND Hospitalist